=== PATIENT | female | born 1930 | race Caucasian/White ===

== ENCOUNTER 2018-02-27 09:50 | Inpatient (IN) | payer MEDICARE, OTHER ==
[~2018-02-27] VITALS: Ht 162.6 cm; Wt 95.4 kg
[2018-02-27 10:46] LABS: BASOPHILS % (AUTO) 0.6 % (0-1); EOSINOPHILS # (AUTO) 0.1 X10'3 (0-0.9); EOSINOPHILS % (AUTO) 2.4 % (0-6); HEMATOCRIT 36.7 % (35.0-45.0); HEMOGLOBIN 11.8 g/dl (12.0-16.0); LYMPHOCYTES # (AUTO) 0.7 X10'3 (1.1-4.8); LYMPHOCYTES % (AUTO) 12.7 % (21-51); MEAN CORPUSCULAR HGB CONC 32.2 % (33.0-36.5); MEAN CORPUSCULAR VOLUME 99.6 FL (78-98); MEAN PLATELET VOLUME 8.6 FL (7.4-10.4); MONOCYTES # (AUTO) 0.2 X10'3 (0-0.9); MONOCYTES % (AUTO) 4.6 % (2-12); NEUTROPHILS # (AUTO) 4.1 X10'3 (1.8-7.7); NEUTROPHILS % (AUTO) 79.7 % (42-75); PLATELET COUNT 166 X10'3 (140-440); RED BLOOD COUNT 3.68 X10'6 (4.20-5.60); RED CELL DISTRIBUTION WIDTH 16.2 % (11.5-14.5); WHITE BLOOD COUNT 5.2 X10'3 (4.5-11.0)
[2018-02-27 11:07] LABS: PARTIAL THROMBOPLASTIN TIME 26 SECONDS (22-32); PROTHROMBIN TIME 10.7 SECONDS (9.0-12.0)
[2018-02-27 12:50] LABS: ALANINE AMINOTRANSFERASE 29 U/L (12-78); ALBUMIN 3.6 G/DL (3.4-5.0); ALBUMIN/GLOBULIN RATIO 1.2 (1.1-1.5); ALKALINE PHOSPHATASE 105 IU/L (46-116); ANION GAP 8 (8-16); ASPARTATE AMINO TRANSFERASE 23 U/L (10-37); BILIRUBIN,TOTAL 0.5 MG/DL (0.1-1.0); BLOOD UREA NITROGEN 27 MG/DL (7-18); BUN/CREATININE RATIO 17.4 (6.6-38.0); CALCIUM 9.1 MG/DL (8.5-10.1); CHLORIDE 106 MMOL/L (99-107); CREATININE 1.55 MG/DL (0.40-0.90); GLUCOSE 105 MG/DL (70-104); POTASSIUM 4.6 MMOL/L (3.5-5.1); SODIUM 147 MMOL/L (135-145); TOTAL CARBON DIOXIDE 32.6 MMOL/L (24-32); TOTAL PROTEIN 6.7 G/DL (6.4-8.2); eGFR 32 ML/MIN
[2018-02-27 12:56] LABS: MAGNESIUM 2.6 MG/DL (1.5-2.4)
[2018-02-27] MEDS ORDERED: furosemide 10 MG/1 ML 10ml inj IV ONE (13:30)
[2018-02-27] MEDS ORDERED: dextrose ORAL solution 15 GM/59 ML bottle PO PRN ×2 (13:35)
[2018-02-27] MEDS ORDERED: glucagon, human recombinant 1mg kit SUBCUT PRN (13:35)
[2018-02-27] MEDS ORDERED: potassium Cl 40MEQ/NS 500ml 500 ML IV PRN ×2 (13:35)
[2018-02-27] MEDS ORDERED: HYDROcodone/acetaminophen 5mg/325mg tablet PO PRN (13:35)
[2018-02-27] MEDS ORDERED: MESSAGE TO PHARMACY PO ONE (13:35)
[2018-02-27] MEDS ORDERED: magnesium 1gm/100ml D5W IVPB 100 ML IV PRN (13:35)
[2018-02-27] MEDS ORDERED: dextrose 50%-water 50ml dispensing syringe IV PRN ×2 (13:35)
[2018-02-27] MEDS ORDERED: magnesium Cl slow-release 64mg tablet PO PRN (13:35)
[2018-02-27] MEDS ORDERED: mag hydrox/Alum hydrox/simeth 30ml oral suspension PO PRN (13:35)
[2018-02-27] MEDS ORDERED: morphine 2 MG/ML inj. syringe IV PRN (13:35)
[2018-02-27] MEDS ORDERED: magnesium 4gm in 100ml NS 100 ML IV PRN (13:35)
[2018-02-27] MEDS ORDERED: ondansetron/PF 4mg/2ml inj IV PRN (13:35)
[2018-02-27] MEDS ORDERED: potassium Cl 20 mEq SR tablet PO PRN ×2 (13:35)
[2018-02-27] MEDS ORDERED: ipratropium/albuterol 3ml nebule NEB PRN (13:35)
[2018-02-27] MEDS ORDERED: magnesium hydroxide 30ml (MOM) UD suspension PO PRN (13:35)
[2018-02-27] MEDS ORDERED: insulin Lispro (HumaLOG) vial - multi-dose SQ SCH (13:35)
[2018-02-27] MEDS ORDERED: acetaminophen 325mg tablet PO PRN (13:35)
[2018-02-27] MEDS ORDERED: FURO-150 PO (13:58)
[2018-02-27] MEDS ORDERED: OMEP40CA37 PO (13:58)
[2018-02-27] MEDS ORDERED: ROPI2TAB29 PO (13:58)
[2018-02-27] MEDS ORDERED: ALBU8.5H8 IH (13:58)
[2018-02-27] MEDS ORDERED: ASPI-1265 PO (13:58)
[2018-02-27] MEDS ORDERED: [UNRECOGNIZED DRUG - OTHER] (13:58)
[2018-02-27] MEDS ORDERED: CLOB15CR4 TOP (13:58)
[2018-02-27] MEDS ORDERED: AMIO200T40 PO (13:58)
[2018-02-27] MEDS ORDERED: ATOR10TA87 PO (13:58)
[2018-02-27] MEDS ORDERED: ALLO100T PO (13:58)
[2018-02-27] MEDS ORDERED: ASCO500C15 PO (13:58)
[2018-02-27] MEDS ORDERED: CALCIUM (13:59)
[2018-02-27] MEDS ORDERED: [UNRECOGNIZED DRUG - OTHER] (13:59)
[2018-02-27 14:27] LABS: HEMOGLOBIN A1C 5.6 % (4.5-6.2)
[2018-02-27] MEDS ORDERED: non-formulary drug (Albuterol Sulfate (Proair Hfa) 2 PUFFS) IH PRN (18:25)
[2018-02-27 18:30] VITALS: BP 100/44
[2018-02-27] MEDS ORDERED: albuterol 2.5 MG/3 ML nebule NEB PRN (18:50)
[2018-02-27] MEDS: clobetasol 0.05% cream 30gm TP SCH (20:00)
[2018-02-27] MEDS ORDERED: non-formulary drug (Clobetasol Propionate 1 APPLIC) TOP SCH (20:00)
[2018-02-27] MEDS: insulin glargine (Lantus) pen - multi-dose SQ SCH (21:00)
[2018-02-27] MEDS: ROPINIRole 1mg tablet PO SCH (21:48)
[2018-02-27 22:21] LABS: ALANINE AMINOTRANSFERASE 28 U/L (12-78); ALBUMIN 3.3 G/DL (3.4-5.0); ALBUMIN/GLOBULIN RATIO 1.1 (1.1-1.5); ALKALINE PHOSPHATASE 106 IU/L (46-116); ASPARTATE AMINO TRANSFERASE 19 U/L (10-37); BILIRUBIN,DIRECT 0.2 MG/DL (0-0.3); BILIRUBIN,TOTAL 0.5 MG/DL (0.1-1.0); TOTAL PROTEIN 6.3 G/DL (6.4-8.2)
[2018-02-28] VITALS: BP 110/60
[2018-02-28 05:11] LABS: BASOPHILS % (AUTO) 0.6 % (0-1); EOSINOPHILS # (AUTO) 0.2 X10'3 (0-0.9); EOSINOPHILS % (AUTO) 3.3 % (0-6); HEMATOCRIT 34.9 % (35.0-45.0); HEMOGLOBIN 11.1 g/dl (12.0-16.0); LYMPHOCYTES # (AUTO) 0.9 X10'3 (1.1-4.8); LYMPHOCYTES % (AUTO) 18.6 % (21-51); MEAN CORPUSCULAR HEMOGLOBIN 31.9 PG (27.0-31.0); MEAN CORPUSCULAR HGB CONC 31.9 % (33.0-36.5); MEAN CORPUSCULAR VOLUME 100.2 FL (78-98); MEAN PLATELET VOLUME 8.5 FL (7.4-10.4); MONOCYTES # (AUTO) 0.3 X10'3 (0-0.9); MONOCYTES % (AUTO) 6.9 % (2-12); NEUTROPHILS # (AUTO) 3.4 X10'3 (1.8-7.7); NEUTROPHILS % (AUTO) 70.6 % (42-75); PLATELET COUNT 162 X10'3 (140-440); RED BLOOD COUNT 3.48 X10'6 (4.20-5.60); RED CELL DISTRIBUTION WIDTH 15.4 % (11.5-14.5); WHITE BLOOD COUNT 4.8 X10'3 (4.5-11.0)
[2018-02-28 05:17] LABS: ALANINE AMINOTRANSFERASE 26 U/L (12-78); ALBUMIN 3.1 G/DL (3.4-5.0); ALBUMIN/GLOBULIN RATIO 1.1 (1.1-1.5); ALKALINE PHOSPHATASE 99 IU/L (46-116); ANION GAP 4 (8-16); ASPARTATE AMINO TRANSFERASE 19 U/L (10-37); BILIRUBIN,TOTAL 0.5 MG/DL (0.1-1.0); BLOOD UREA NITROGEN 31 MG/DL (7-18); BUN/CREATININE RATIO 18.8 (6.6-38.0); CALCIUM 8.7 MG/DL (8.5-10.1); CHLORIDE 104 MMOL/L (99-107); CREATININE 1.65 MG/DL (0.40-0.90); GLUCOSE 85 MG/DL (70-104); MAGNESIUM 2.3 MG/DL (1.5-2.4); POTASSIUM 4.1 MMOL/L (3.5-5.1); SODIUM 145 MMOL/L (135-145); TOTAL CARBON DIOXIDE 37.1 MMOL/L (24-32); eGFR 29 ML/MIN
[2018-02-28 07:00] VITALS: BP 113/54
[2018-02-28] MEDS ORDERED: furosemide 20MG tablet PO SCH (08:00)
[2018-02-28] MEDS: K and/or MAG REPLACEMENT MC SCH (08:00)
[2018-02-28] MEDS ORDERED: non-formulary drug (Omeprazole (Prilosec) 1 CAP) PO SCH (08:00)
[2018-02-28] MEDS ORDERED: non-formulary drug (Ascorbic Acid (Vitamin C) 1 CAP) PO SCH (08:00)
[2018-02-28] MEDS: aspirin 81mg tab.chew PO SCH (08:21)
[2018-02-28] MEDS: ascorbic acid 500mg tablet PO SCH (08:22)
[2018-02-28] MEDS: pantoprazole 40mg Tablet.DR PO SCH (08:22)
[2018-02-28] MEDS: allopurinol 100mg tablet PO SCH (08:22)
[2018-02-28] MEDS: atorvastatin 10mg tablet PO SCH (08:22)
[2018-02-28] MEDS: ROPINIRole 1mg tablet PO SCH ×3 (08:23→21:27)
[2018-02-28] MEDS: amiodarone 200mg tablet PO SCH (08:23)
[2018-02-28] MEDS: enoxaparin 40mg/0.4ml syringe SUBCUT SCH (08:25)
[2018-02-28] MEDS: clobetasol 0.05% cream 30gm TP SCH ×2 (08:26→21:27)
[2018-02-28] MEDS: furosemide 10 MG/1 ML 10ml inj IV SCH (09:28)
[2018-02-28 11:00] VITALS: BP 100/35
[2018-02-28] MEDS: insulin glargine (Lantus) pen - multi-dose SQ SCH (21:00)
[2018-03-01] VITALS: BP 98/48
[2018-03-01 04:11] LABS: BASOPHILS % (AUTO) 0.4 % (0-1); EOSINOPHILS # (AUTO) 0.2 X10'3 (0-0.9); EOSINOPHILS % (AUTO) 4.2 % (0-6); HEMATOCRIT 34.3 % (35.0-45.0); HEMOGLOBIN 11.1 g/dl (12.0-16.0); LYMPHOCYTES % (AUTO) 22.4 % (21-51); MEAN CORPUSCULAR HEMOGLOBIN 31.9 PG (27.0-31.0); MEAN CORPUSCULAR HGB CONC 32.2 % (33.0-36.5); MEAN CORPUSCULAR VOLUME 99.3 FL (78-98); MEAN PLATELET VOLUME 8.8 FL (7.4-10.4); MONOCYTES # (AUTO) 0.4 X10'3 (0-0.9); MONOCYTES % (AUTO) 8.6 % (2-12); NEUTROPHILS % (AUTO) 64.4 % (42-75); PLATELET COUNT 157 X10'3 (140-440); RED BLOOD COUNT 3.46 X10'6 (4.20-5.60); RED CELL DISTRIBUTION WIDTH 15.5 % (11.5-14.5); WHITE BLOOD COUNT 4.7 X10'3 (4.5-11.0)
[2018-03-01 04:25] LABS: ALANINE AMINOTRANSFERASE 25 U/L (12-78); ALBUMIN 3.1 G/DL (3.4-5.0); ALKALINE PHOSPHATASE 97 IU/L (46-116); ANION GAP 4 (8-16); ASPARTATE AMINO TRANSFERASE 17 U/L (10-37); BILIRUBIN,TOTAL 0.4 MG/DL (0.1-1.0); BLOOD UREA NITROGEN 40 MG/DL (7-18); BUN/CREATININE RATIO 21.6 (6.6-38.0); CALCIUM 8.6 MG/DL (8.5-10.1); CHLORIDE 104 MMOL/L (99-107); CREATININE 1.85 MG/DL (0.40-0.90); GLUCOSE 100 MG/DL (70-104); MAGNESIUM 2.5 MG/DL (1.5-2.4); SODIUM 145 MMOL/L (135-145); TOTAL CARBON DIOXIDE 36.9 MMOL/L (24-32); TOTAL PROTEIN 6.1 G/DL (6.4-8.2); eGFR 26 ML/MIN
[2018-03-01 06:00] VITALS: BP 130/51
[2018-03-01] MEDS: K and/or MAG REPLACEMENT MC SCH (07:19)
[2018-03-01] MEDS: allopurinol 100mg tablet PO SCH (09:04)
[2018-03-01] MEDS: atorvastatin 10mg tablet PO SCH (09:05)
[2018-03-01] MEDS: ascorbic acid 500mg tablet PO SCH (09:05)
[2018-03-01] MEDS: ROPINIRole 1mg tablet PO SCH ×3 (09:05→21:56)
[2018-03-01] MEDS: aspirin 81mg tab.chew PO SCH (09:05)
[2018-03-01] MEDS: amiodarone 200mg tablet PO SCH (09:06)
[2018-03-01] MEDS: furosemide 10 MG/1 ML 10ml inj IV SCH (09:07)
[2018-03-01] MEDS: clobetasol 0.05% cream 30gm TP SCH ×2 (09:09→21:57)
[2018-03-01] MEDS: enoxaparin 40mg/0.4ml syringe SUBCUT SCH (09:10)
[2018-03-01] MEDS: pantoprazole 40mg Tablet.DR PO SCH (09:25)
[2018-03-01 12:34] VITALS: BP 115/48
[2018-03-01 19:30] VITALS: BP 95/47
[2018-03-01] MEDS: insulin glargine (Lantus) pen - multi-dose SQ SCH (21:00)
[2018-03-02] VITALS: BP 110/42
[2018-03-02 05:14] LABS: BASOPHILS % (AUTO) 0.3 % (0-1); EOSINOPHILS # (AUTO) 0.2 X10'3 (0-0.9); EOSINOPHILS % (AUTO) 4.6 % (0-6); HEMATOCRIT 35.2 % (35.0-45.0); HEMOGLOBIN 11.4 g/dl (12.0-16.0); LYMPHOCYTES # (AUTO) 1.3 X10'3 (1.1-4.8); LYMPHOCYTES % (AUTO) 26.5 % (21-51); MEAN CORPUSCULAR HEMOGLOBIN 32.2 PG (27.0-31.0); MEAN CORPUSCULAR HGB CONC 32.3 % (33.0-36.5); MEAN CORPUSCULAR VOLUME 99.6 FL (78-98); MEAN PLATELET VOLUME 8.6 FL (7.4-10.4); MONOCYTES # (AUTO) 0.5 X10'3 (0-0.9); MONOCYTES % (AUTO) 9.5 % (2-12); NEUTROPHILS % (AUTO) 59.1 % (42-75); PLATELET COUNT 157 X10'3 (140-440); RED BLOOD COUNT 3.53 X10'6 (4.20-5.60); RED CELL DISTRIBUTION WIDTH 15.4 % (11.5-14.5)
[2018-03-02 05:27] LABS: ALANINE AMINOTRANSFERASE 25 U/L (12-78); ALBUMIN 3.1 G/DL (3.4-5.0); ALKALINE PHOSPHATASE 97 IU/L (46-116); ANION GAP 4 (8-16); ASPARTATE AMINO TRANSFERASE 17 U/L (10-37); BILIRUBIN,TOTAL 0.4 MG/DL (0.1-1.0); BLOOD UREA NITROGEN 42 MG/DL (7-18); BUN/CREATININE RATIO 22.7 (6.6-38.0); CALCIUM 8.5 MG/DL (8.5-10.1); CHLORIDE 102 MMOL/L (99-107); CREATININE 1.85 MG/DL (0.40-0.90); GLUCOSE 95 MG/DL (70-104); MAGNESIUM 2.5 MG/DL (1.5-2.4); POTASSIUM 4.1 MMOL/L (3.5-5.1); SODIUM 142 MMOL/L (135-145); TOTAL CARBON DIOXIDE 36.2 MMOL/L (24-32); TOTAL PROTEIN 6.2 G/DL (6.4-8.2); eGFR 26 ML/MIN
[2018-03-02] MEDS: K and/or MAG REPLACEMENT MC SCH (06:48)
[2018-03-02] MEDS: pantoprazole 40mg Tablet.DR PO SCH ×2 (06:52→09:27)
[2018-03-02 06:59] VITALS: BP 117/59
[2018-03-02] MEDS ORDERED: enoxaparin 30mg/0.3ml syringe SUBCUT SCH (08:00)
[2018-03-02] MEDS: ROPINIRole 1mg tablet PO SCH ×2 (09:26→13:37)
[2018-03-02] MEDS: atorvastatin 10mg tablet PO SCH (09:26)
[2018-03-02] MEDS: aspirin 81mg tab.chew PO SCH (09:27)
[2018-03-02] MEDS: ascorbic acid 500mg tablet PO SCH (09:27)
[2018-03-02] MEDS: allopurinol 100mg tablet PO SCH (09:28)
[2018-03-02] MEDS: amiodarone 200mg tablet PO SCH (09:28)
[2018-03-02] MEDS: furosemide 10 MG/1 ML 10ml inj IV SCH (09:29)
[2018-03-02] MEDS: clobetasol 0.05% cream 30gm TP SCH (09:41)
[2018-03-02] MEDS ORDERED: FURO-150 PO (11:13)
[2018-03-02 11:30] VITALS: BP 105/60
== END 2018-03-02 15:00 | disposition home or self-care (01) | DRG 306 ==
LOC: ER 09:51 → ED HOLD 13:33 → EDBEDREQ 17:07 → SUR 3N 19:12
PROVIDERS: ADMIT Internal Medicine; ATTEND Internal Medicine
DX: I35.0 Nonrheumatic aortic (valve) stenosis (principal); I50.23 Acute on chronic systolic (congestive) heart failure; J44.1 Chronic obstructive pulmonary disease with (acute) exacerbation; I11.0 Hypertensive heart disease with heart failure; E11.9 Type 2 diabetes mellitus without complications; E78.00 Pure hypercholesterolemia, unspecified; E78.5 Hyperlipidemia, unspecified; Z93.2 Ileostomy status; Z88.0 Allergy status to penicillin; Z79.899 Other long term (current) drug therapy; Z87.891 Personal history of nicotine dependence
CPT/HCPCS: 36415; 71045; 80053; 80076; 82948; 83036; 83735; 83880; 84439; 84443; 84484; 85025; 85610; 85730; 87070; 93005; 94760; 97116; 97161; 99285; J1650; J1815; J1940

== ENCOUNTER 2018-08-05 01:13 | Inpatient (IN) | payer MEDICARE | END 2018-08-08 18:30 | disposition short-term general hospital (02) | LOC: ER 01:13 → ICU 2S 04:27 | PROC: 5A1945Z Respiratory Ventilation, 24-96 Consecutive Hours (ICD-10-PCS; principal; ~2018-08-05) | PROC: 0BH17EZ Insertion of Endotracheal Airway into Trachea, Via Natural or Artificial Opening (ICD-10-PCS; ~2018-08-05) | DX: J96.90 Respiratory failure, unspecified, unspecified whether with hypoxia or hypercapnia (principal); I50.23 Acute on chronic systolic (congestive) heart failure; I13.0 Hypertensive heart and chronic kidney disease with heart failure and stage 1 through stage 4 chronic kidney disease, or unspecified chronic kidney disease; I11.0 Hypertensive heart disease with heart failure; E11.9 Type 2 diabetes mellitus without complications; N18.9 Chronic kidney disease, unspecified ==

== ENCOUNTER 2018-12-20 08:47 | Inpatient (IN) | payer MEDICARE ==
[~2018-12-20] VITALS: Ht 160 cm; Wt 90.0 kg
[~2018-12-20 08:47] MED LIST: ALBU2.5V7 NEB; ALBU8.5H8 IH; ALLO100T PO; AMIO200T61 PO; ASCO500C15 PO; ASPI-1265 PO; ATOR10TA87 PO; AZI25OT PO; CALC-1197 PO; CLOB15CR4 TOP; FURO40TA4 PO; HEPA500017 SQ; IPRA3AMP9 NEB; MULT-955 PO; OMEP20CA11 PO; ROPI2TAB29 PO
--- NOTE | 2018-12-20 10:55 | NUR ---
pt out to ct via dustin with aircraft mechanic structures
--- NOTE | 2018-12-20 11:10 | NUR ---
PT RETURNS FROM CT
[2018-12-20 12:18] LABS: BASOPHILS % (AUTO) 0.8 % (0-1); EOSINOPHILS # (AUTO) 0.2 X10'3 (0-0.9); EOSINOPHILS % (AUTO) 3.1 % (0-6); HEMATOCRIT 30.1 % (35.0-45.0); HEMOGLOBIN 9.8 g/dl (12.0-16.0); LYMPHOCYTES # (AUTO) 0.7 X10'3 (1.1-4.8); LYMPHOCYTES % (AUTO) 14.1 % (21-51); MEAN CORPUSCULAR HEMOGLOBIN 30.8 PG (27.0-31.0); MEAN CORPUSCULAR HGB CONC 32.7 g/dL (33.0-36.5); MEAN CORPUSCULAR VOLUME 94.2 FL (78-98); MEAN PLATELET VOLUME 8.2 FL (7.4-10.4); MONOCYTES # (AUTO) 0.3 X10'3 (0-0.9); MONOCYTES % (AUTO) 6.4 % (2-12); NEUTROPHILS # (AUTO) 3.9 X10'3 (1.8-7.7); NEUTROPHILS % (AUTO) 75.6 % (42-75); PLATELET COUNT 162 X10'3 (140-440); RED BLOOD COUNT 3.19 X10'6 (4.20-5.60); RED CELL DISTRIBUTION WIDTH 16.1 % (11.5-14.5); WHITE BLOOD COUNT 5.1 X10'3 (4.5-11.0)
[2018-12-20 12:30] LABS: ALANINE AMINOTRANSFERASE 25 U/L (12-78); ALBUMIN 3.3 G/DL (3.4-5.0); ALBUMIN/GLOBULIN RATIO 1.1 (1.1-1.5); ALKALINE PHOSPHATASE 105 IU/L (46-116); ANION GAP 10 (8-16); ASPARTATE AMINO TRANSFERASE 14 U/L (10-37); BILIRUBIN,TOTAL 0.4 MG/DL (0.1-1.0); BLOOD UREA NITROGEN 38 MG/DL (7-18); BUN/CREATININE RATIO 24.4 (6.6-38.0); CALCIUM 8.8 MG/DL (8.5-10.1); CHLORIDE 109 MMOL/L (99-107); CREATININE 1.56 MG/DL (0.40-0.90); GLUCOSE 100 MG/DL (70-104); POTASSIUM 4.8 MMOL/L (3.5-5.1); SODIUM 144 MMOL/L (135-145); TOTAL CARBON DIOXIDE 24.9 MMOL/L (24-32); TOTAL PROTEIN 6.3 G/DL (6.4-8.2); eGFR 31 ML/MIN
[2018-12-20 13:03] LABS: PARTIAL THROMBOPLASTIN TIME 40 SECONDS (22-32)
[2018-12-20 13:09] LABS: CLARITY,URINE CLEAR (Clear); COLOR,URINE YELLOW (Yellow); GLUCOSE, URINE NEGATIVE (Neg); KETONES,URINE NEGATIVE (Neg); LEUKOCYTE ESTERASE ,URINE NEGATIVE (Neg); NITRITES, URINE POSITIVE (Neg); OCCULT BLOOD,URINE SMALL (Neg); PH,URINE 7.5 (4.8-8.0); PROTEIN,URINE NEGATIVE (Neg); UROBILINOGEN,URINE 0.2 E.U/dL (0.2-1.0)
[2018-12-20 13:12] LABS: UA COLLECTION TYPE OTHER
[2018-12-20 13:15] LABS: BACTERIA,URINE FEW /HPF (Neg); MUCUS STRANDS FEW /LPF (Neg); RBC,URINE NONE SEEN /HPF (0-2); SQUAMOUS EPITHELIAL CELL,UR NONE SEEN /LPF (FEW); WBC,URINE 0-4 /HPF (0-4)
--- NOTE | 2018-12-20 13:29 | NUR ---
FAMILY CONTACT PHONE #: SARHA ONOFRE [phone]
[2018-12-20] MEDS ORDERED: mag hydrox/Alum hydrox/simeth 30ml oral suspension PO PRN (13:30)
[2018-12-20] MEDS ORDERED: acetaminophen 325mg tablet PO PRN (13:30)
[2018-12-20] MEDS ORDERED: morphine 2 MG/ML inj. syringe IV PRN (13:30)
[2018-12-20] MEDS ORDERED: ondansetron/PF 4mg/2ml inj IV PRN (13:30)
[2018-12-20] MEDS ORDERED: magnesium hydroxide 30ml (MOM) UD suspension PO PRN (13:30)
[2018-12-20] MEDS ORDERED: WARF-65 PO (13:45)
[2018-12-20] MEDS ORDERED: ROPI2TAB5 PO (13:45)
[2018-12-20] MEDS ORDERED: OMEP20CA11 PO (13:45)
[2018-12-20] MEDS ORDERED: ATOR40TA72 PO (13:45)
[2018-12-20] MEDS ORDERED: AMIO200T54 PO (14:21)
[2018-12-20] MEDS ORDERED: FURO-150 PO (14:21)
[2018-12-20] MEDS ORDERED: COU1T PO (14:23)
[2018-12-20] MEDS: normal saline 1000ml 1,000 ML IV SCH (14:41)
[2018-12-20 15:30] VITALS: BP 173/77
[2018-12-20 16:15] VITALS: BP 126/57
[2018-12-20 18:00] VITALS: BP 122/98
--- NOTE | 2018-12-20 18:15 | NUR ---
Problems reprioritized. Patient report given, questions answered & plan of care reviewed with MELINA Cid. pt in 4009A HR in the 40s per tele phone call. pt just woke up and was A/O. No SOB, resp distress, N/V, vertigo. Pt stated she was hungry and had appropriate exchange in coversation. Called tele back, pt back up into the 50s. This was pt baseline since admitted to floor at 1515
[2018-12-20] MEDS: ROPINIRole 1mg tablet PO SCH (20:08)
[2018-12-20] MEDS: warfarin 1mg tablet PO SCH (20:09)
[2018-12-20 22:00] VITALS: BP 106/44
[2018-12-21] MEDS: HYDROcodone/acetaminophen 10/325mg tab PO PRN (05:17)
--- NOTE | 2018-12-21 06:00 | NUR ---
Patient in room ORTHO 4009. I have received report from and had the opportunity to ask questions and assume patient care MELINA Girard.
[2018-12-21 06:13] LABS: ALBUMIN 3.1 G/DL (3.4-5.0); ANION GAP 8 (8-16); BLOOD UREA NITROGEN 36 MG/DL (7-18); BUN/CREATININE RATIO 24.3 (6.6-38.0); CALCIUM 8.6 MG/DL (8.5-10.1); CHLORIDE 109 MMOL/L (99-107); CREATININE 1.48 MG/DL (0.40-0.90); GLUCOSE 98 MG/DL (70-104); POTASSIUM 4.6 MMOL/L (3.5-5.1); SODIUM 143 MMOL/L (135-145); TOTAL CARBON DIOXIDE 26.4 MMOL/L (24-32); eGFR 33 ML/MIN
[2018-12-21 06:19] LABS: BASOPHILS # (AUTO) 0.1 X10'3 (0-0.2); BASOPHILS % (AUTO) 1.4 % (0-1); EOSINOPHILS # (AUTO) 0.3 X10'3 (0-0.9); HEMATOCRIT 31.5 % (35.0-45.0); HEMOGLOBIN 10.2 g/dl (12.0-16.0); LYMPHOCYTES # (AUTO) 1.1 X10'3 (1.1-4.8); LYMPHOCYTES % (AUTO) 20.8 % (21-51); MEAN CORPUSCULAR HEMOGLOBIN 30.8 PG (27.0-31.0); MEAN CORPUSCULAR HGB CONC 32.3 g/dL (33.0-36.5); MEAN CORPUSCULAR VOLUME 95.4 FL (78-98); MEAN PLATELET VOLUME 8.6 FL (7.4-10.4); MONOCYTES # (AUTO) 0.4 X10'3 (0-0.9); MONOCYTES % (AUTO) 8.2 % (2-12); NEUTROPHILS # (AUTO) 3.4 X10'3 (1.8-7.7); NEUTROPHILS % (AUTO) 64.6 % (42-75); PLATELET COUNT 173 X10'3 (140-440); RED CELL DISTRIBUTION WIDTH 15.6 % (11.5-14.5); WHITE BLOOD COUNT 5.3 X10'3 (4.5-11.0)
--- NOTE | 2018-12-21 06:35 | NUR ---
report given to starr Hunter.
[2018-12-21 07:40] VITALS: BP 140/62
[2018-12-21] MEDS ORDERED: non-formulary drug (Atorvastatin Calcium 1 TAB) PO SCH (08:00)
[2018-12-21] MEDS ORDERED: non-formulary drug (Omeprazole 1 CAP) PO SCH (08:00)
[2018-12-21] MEDS: pantoprazole 40mg Tablet.DR PO SCH (08:53)
[2018-12-21] MEDS: ROPINIRole 1mg tablet PO SCH ×3 (08:53→19:48)
[2018-12-21] MEDS: amiodarone 200mg tablet PO SCH (08:53)
[2018-12-21] MEDS: atorvastatin 20mg tablet PO SCH (08:53)
[2018-12-21] MEDS: furosemide 20MG tablet PO SCH (08:54)
[2018-12-21 10:00] VITALS: BP 122/56
[2018-12-21 18:00] VITALS: BP 124/48
--- NOTE | 2018-12-21 18:00 | NUR ---
Problems reprioritized. Patient report given, questions answered & plan of care reviewed with MELINA Girard.
--- NOTE | 2018-12-21 19:04 | NUR ---
REPORT REC'D FROM MELINA BULLOCK.
[2018-12-21] MEDS: levoFLOXACIN-Levaquin 500mg/D5 100 ML IV SCH (19:48)
[2018-12-21] MEDS: warfarin 1mg tablet PO SCH (19:49)
[2018-12-21 22:00] VITALS: BP 118/47
[2018-12-22] MEDS: HYDROcodone/acetaminophen 10/325mg tab PO PRN ×2 (01:18→05:28)
[2018-12-22 06:00] VITALS: BP 109/52
--- NOTE | 2018-12-22 06:23 | NUR ---
REPORT GIVEN TO MELINA BULLOCK.
[2018-12-22 06:24] LABS: BASOPHILS % (AUTO) 0.9 % (0-1); EOSINOPHILS # (AUTO) 0.3 X10'3 (0-0.9); EOSINOPHILS % (AUTO) 5.3 % (0-6); HEMATOCRIT 29.6 % (35.0-45.0); HEMOGLOBIN 9.7 g/dl (12.0-16.0); LYMPHOCYTES # (AUTO) 0.8 X10'3 (1.1-4.8); LYMPHOCYTES % (AUTO) 16.2 % (21-51); MEAN CORPUSCULAR HEMOGLOBIN 31.3 PG (27.0-31.0); MEAN CORPUSCULAR HGB CONC 32.8 g/dL (33.0-36.5); MEAN CORPUSCULAR VOLUME 95.5 FL (78-98); MEAN PLATELET VOLUME 8.3 FL (7.4-10.4); MONOCYTES # (AUTO) 0.4 X10'3 (0-0.9); MONOCYTES % (AUTO) 7.7 % (2-12); NEUTROPHILS # (AUTO) 3.4 X10'3 (1.8-7.7); NEUTROPHILS % (AUTO) 69.9 % (42-75); PLATELET COUNT 155 X10'3 (140-440); RED CELL DISTRIBUTION WIDTH 15.9 % (11.5-14.5); WHITE BLOOD COUNT 4.9 X10'3 (4.5-11.0)
[2018-12-22 06:29] LABS: ALBUMIN 2.8 G/DL (3.4-5.0); ANION GAP 4 (8-16); BLOOD UREA NITROGEN 40 MG/DL (7-18); BUN/CREATININE RATIO 25.5 (6.6-38.0); CALCIUM 8.3 MG/DL (8.5-10.1); CHLORIDE 107 MMOL/L (99-107); CREATININE 1.57 MG/DL (0.40-0.90); GLUCOSE 94 MG/DL (70-104); POTASSIUM 4.6 MMOL/L (3.5-5.1); SODIUM 141 MMOL/L (135-145); TOTAL CARBON DIOXIDE 29.7 MMOL/L (24-32); eGFR 31 ML/MIN
[2018-12-22] MEDS: atorvastatin 20mg tablet PO SCH (08:22)
[2018-12-22] MEDS: levoFLOXACIN-Levaquin 500mg/D5 100 ML IV SCH (08:22)
[2018-12-22] MEDS: ROPINIRole 1mg tablet PO SCH ×3 (08:22→20:12)
[2018-12-22] MEDS: pantoprazole 40mg Tablet.DR PO SCH (08:22)
[2018-12-22] MEDS: furosemide 20MG tablet PO SCH (08:22)
[2018-12-22] MEDS: amiodarone 200mg tablet PO SCH (08:22)
[2018-12-22 10:00] VITALS: BP 113/41
[2018-12-22] MEDS: warfarin 1mg tablet PO SCH (20:14)
[2018-12-22 22:00] VITALS: BP 113/40
[2018-12-23] MEDS: normal saline 1000ml 1,000 ML IV SCH (04:58)
[2018-12-23 06:35] LABS: ALBUMIN 2.9 G/DL (3.4-5.0); ANION GAP 7 (8-16); BLOOD UREA NITROGEN 37 MG/DL (7-18); BUN/CREATININE RATIO 25.7 (6.6-38.0); CALCIUM 8.6 MG/DL (8.5-10.1); CHLORIDE 106 MMOL/L (99-107); CREATININE 1.44 MG/DL (0.40-0.90); GLUCOSE 88 MG/DL (70-104); POTASSIUM 4.5 MMOL/L (3.5-5.1); SODIUM 142 MMOL/L (135-145); eGFR 34 ML/MIN
[2018-12-23 06:38] LABS: BASOPHILS % (AUTO) 0.7 % (0-1); EOSINOPHILS # (AUTO) 0.2 X10'3 (0-0.9); EOSINOPHILS % (AUTO) 5.2 % (0-6); HEMATOCRIT 31.2 % (35.0-45.0); HEMOGLOBIN 10.3 g/dl (12.0-16.0); LYMPHOCYTES # (AUTO) 0.9 X10'3 (1.1-4.8); MEAN CORPUSCULAR HGB CONC 32.8 g/dL (33.0-36.5); MEAN CORPUSCULAR VOLUME 94.5 FL (78-98); MEAN PLATELET VOLUME 8.2 FL (7.4-10.4); MONOCYTES # (AUTO) 0.4 X10'3 (0-0.9); MONOCYTES % (AUTO) 9.1 % (2-12); PLATELET COUNT 159 X10'3 (140-440); RED CELL DISTRIBUTION WIDTH 15.7 % (11.5-14.5); WHITE BLOOD COUNT 4.6 X10'3 (4.5-11.0)
--- NOTE | 2018-12-23 06:41 | NUR ---
ns reassessment not done when coming on shift
[2018-12-23 06:43] VITALS: BP 139/55
--- NOTE | 2018-12-23 06:43 | NUR ---
Patient in room ORTHO 4009. I have received report from Era SUMMERS and had the opportunity to ask questions and assume patient care.
[2018-12-23] MEDS: levoFLOXACIN-Levaquin 500mg/D5 100 ML IV SCH ×2 (07:33→08:00)
[2018-12-23] MEDS: amiodarone 200mg tablet PO SCH (07:33)
[2018-12-23] MEDS: atorvastatin 20mg tablet PO SCH (07:33)
[2018-12-23] MEDS: pantoprazole 40mg Tablet.DR PO SCH (07:34)
[2018-12-23] MEDS: furosemide 20MG tablet PO SCH (07:34)
[2018-12-23] MEDS: ROPINIRole 1mg tablet PO SCH ×3 (07:34→20:00)
[2018-12-23] MEDS ORDERED: levoFLOXACIN 500mg tablet PO ONE (09:00)
[2018-12-23 10:33] VITALS: BP 142/40
--- NOTE | 2018-12-23 16:27 | NUR ---
Pt was told she was not leaving today because of insurance approval. Pt said to call Rossy to let her know. Rossy was notified.
[2018-12-23 18:00] VITALS: BP 125/38
--- NOTE | 2018-12-23 18:00 | NUR ---
I AGREE WIH MY PRECEPTEE'S BILL RN CHARTING.
--- NOTE | 2018-12-23 18:17 | NUR ---
Problems reprioritized. Patient report given, questions answered & plan of care reviewed with Mary Grace SUMMERS.
[2018-12-23] MEDS: warfarin 1mg tablet PO SCH (19:59)
[2018-12-23 22:00] VITALS: BP 122/40
[2018-12-24 05:50] LABS: ANION GAP 6 (8-16); BLOOD UREA NITROGEN 39 MG/DL (7-18); BUN/CREATININE RATIO 24.1 (6.6-38.0); CALCIUM 8.8 MG/DL (8.5-10.1); CHLORIDE 105 MMOL/L (99-107); CREATININE 1.62 MG/DL (0.40-0.90); GLUCOSE 92 MG/DL (70-104); POTASSIUM 4.3 MMOL/L (3.5-5.1); SODIUM 142 MMOL/L (135-145); TOTAL CARBON DIOXIDE 31.4 MMOL/L (24-32); eGFR 30 ML/MIN
[2018-12-24 05:55] LABS: BASOPHILS % (AUTO) 0.6 % (0-1); EOSINOPHILS # (AUTO) 0.2 X10'3 (0-0.9); EOSINOPHILS % (AUTO) 4.6 % (0-6); HEMOGLOBIN 10.8 g/dl (12.0-16.0); LYMPHOCYTES % (AUTO) 22.5 % (21-51); MEAN CORPUSCULAR HEMOGLOBIN 30.7 PG (27.0-31.0); MEAN CORPUSCULAR HGB CONC 32.6 g/dL (33.0-36.5); MEAN CORPUSCULAR VOLUME 94.1 FL (78-98); MEAN PLATELET VOLUME 8.3 FL (7.4-10.4); MONOCYTES # (AUTO) 0.4 X10'3 (0-0.9); MONOCYTES % (AUTO) 9.6 % (2-12); NEUTROPHILS # (AUTO) 2.9 X10'3 (1.8-7.7); NEUTROPHILS % (AUTO) 62.7 % (42-75); PLATELET COUNT 163 X10'3 (140-440); RED BLOOD COUNT 3.51 X10'6 (4.20-5.60); RED CELL DISTRIBUTION WIDTH 15.6 % (11.5-14.5); WHITE BLOOD COUNT 4.6 X10'3 (4.5-11.0)
--- NOTE | 2018-12-24 06:08 | NUR ---
Problems reprioritized. Patient report given, questions answered & plan of care reviewed with MELINA Huerta and MELINA Knox.
[2018-12-24 06:35] VITALS: BP 133/48
--- NOTE | 2018-12-24 06:36 | NUR ---
Patient in room ORTHO 4009. I have received report from Mary Grace SUMMERS and had the opportunity to ask questions and assume patient care.
[2018-12-24] MEDS: ROPINIRole 1mg tablet PO SCH ×2 (07:55→13:02)
[2018-12-24] MEDS: furosemide 20MG tablet PO SCH (07:56)
[2018-12-24] MEDS: pantoprazole 40mg Tablet.DR PO SCH (07:56)
[2018-12-24] MEDS: atorvastatin 20mg tablet PO SCH (07:56)
[2018-12-24] MEDS: amiodarone 200mg tablet PO SCH (07:56)
[2018-12-24 10:00] VITALS: BP 86/52
[2018-12-24] MEDS: HYDROcodone/acetaminophen 10/325mg tab PO PRN (10:36)
[2018-12-24] MEDS ORDERED: lactose-reduced food (Ensure High Protein) 237ml bottle PO SCH (13:00)
--- NOTE | 2018-12-24 15:01 | NUR ---
Initial: Pt admit w/ pelic fx s/p fall. RD provided written/verbal high protein ed w/ RD Contact information provided. Pt PO 75-100% meals agrees to vanilla ensure high protein TIDWM as well as cottage cheese w/ fruit for lunch. Dietary and MD notified; pending MD verification prior to sending on trays which pt is aware of. LBM 12/24. Will continue to monitor. Rec: 1. continue regular diet 2. vanilla ensure high protein TIDWM 3. routine bowel care 4. wt per rx Addendum: 12/24/18 at [address] Amended: Links added.
--- NOTE | 2018-12-24 16:00 | NUR ---
I AGREE WITH ,Y PRECEPTEE BILL SUMMERS CHARTING.
== END 2018-12-24 15:50 | DRG 536 ==
LOC: ER 08:47 → ORTHO 4S 15:00 → CMPBEDREQ 12-21 19:44
PROVIDERS: ADMIT Family Medicine; ATTEND Family Medicine
DX: S32.511A Fracture of superior rim of right pubis, initial encounter for closed fracture (principal); N39.0 Urinary tract infection, site not specified; J44.9 Chronic obstructive pulmonary disease, unspecified; E11.9 Type 2 diabetes mellitus without complications; E78.00 Pure hypercholesterolemia, unspecified; E78.5 Hyperlipidemia, unspecified; W18.39XA Other fall on same level, initial encounter; Y83.1 Surgical operation with implant of artificial internal device as the cause of abnormal reaction of the patient, or of later complication, without mention of misadventure at the time of the procedure; I11.0 Hypertensive heart disease with heart failure; I50.9 Heart failure, unspecified; Z79.01 Long term (current) use of anticoagulants; Z95.2 Presence of prosthetic heart valve; Z88.0 Allergy status to penicillin; Y93.89 Activity, other specified; Y92.89 Other specified places as the place of occurrence of the external cause; Y99.8 Other external cause status
CPT/HCPCS: 36415; 72131; 72192; 80048; 80053; 81001; 85025; 85610; 85730; 87077; 87081; 87088; 87186; 96360; 97110; 97116; 97161; 97530; 99285; G0378; J1956; J7030

== ENCOUNTER 2019-01-16 00:40 | Inpatient (IN) | payer MEDICARE ==
[~2019-01-16] VITALS: Ht 167.6 cm; Wt 86.9 kg
[2019-01-16] VITALS (15 sets, daily range): BP systolic 99–139; BP diastolic 40–59
[~2019-01-16 00:40] MED LIST changes: -ALBU2.5V7 NEB; -ALBU8.5H8 IH; -ALLO100T PO; +AMIO200T54 PO; -AMIO200T61 PO; -ASCO500C15 PO; -ASPI-1265 PO; -ATOR10TA87 PO; +ATOR40TA72 PO; -AZI25OT PO; -CALC-1197 PO; -CLOB15CR4 TOP; +COU1T PO; +FURO-150 PO; -FURO40TA4 PO; -HEPA500017 SQ; -IPRA3AMP9 NEB; -MULT-955 PO; -ROPI2TAB29 PO; +ROPI2TAB5 PO
[2019-01-16 01:06] LABS: ABG BASE EXCESS 5.4 mmol/L (-2.0-3.0); ABG HCO3 32.5 mmol/L (22.0-26.0); ABG OXYGEN SATURATION 95.4 % (95-98); ABG PCO2 (T) 67.5 mmHg (35.0-45.0); ABG PH (T) 7.311 (7.350-7.450); ABG PO2 (T) 90.4 mmHg (83-108); FCOHb 0.3 % (0.5-1.5); FLOW 15 L/min; FMetHb 0.3 % (0.3-1.12); FO2Hb 94.8 % (94-100); PATIENT TEMPERATURE 39.3
[2019-01-16] MEDS ORDERED: enalaprilat dihydrate 2.5mg/2ml vial IV ONE (01:15)
[2019-01-16] MEDS ORDERED: nitroGLYCERIN-Tridil 50MG/D5W 250 ML IV ONE (01:15)
--- NOTE | 2019-01-16 01:32 | NUR ---
systolic blood pressure manually 70/30. Attempted on both arms. Pt awake and responsive. MD aware.
[2019-01-16] MEDS ORDERED: NORepinephrine inj. 16 MG in normal saline 500ml IV soln 484 ML IV SCH (01:40)
[2019-01-16 01:49] LABS: BASOPHILS # (AUTO) 0.2 X10'3 (0-0.2); BASOPHILS % (AUTO) 0.8 % (0-1); EOSINOPHILS % (AUTO) 0.1 % (0-6); HEMATOCRIT 28.8 % (35.0-45.0); HEMOGLOBIN 9.3 g/dl (12.0-16.0); LYMPHOCYTES # (AUTO) 0.2 X10'3 (1.1-4.8); MEAN CORPUSCULAR HEMOGLOBIN 30.5 PG (27.0-31.0); MEAN CORPUSCULAR HGB CONC 32.2 g/dL (33.0-36.5); MEAN CORPUSCULAR VOLUME 94.8 FL (78-98); MEAN PLATELET VOLUME 7.6 FL (7.4-10.4); MONOCYTES # (AUTO) 0.7 X10'3 (0-0.9); MONOCYTES % (AUTO) 3.3 % (2-12); NEUTROPHILS # (AUTO) 21.2 X10'3 (1.8-7.7); NEUTROPHILS % (AUTO) 94.8 % (42-75); PLATELET COUNT 232 X10'3 (140-440); RED BLOOD COUNT 3.04 X10'6 (4.20-5.60); RED CELL DISTRIBUTION WIDTH 16.4 % (11.5-14.5); WHITE BLOOD COUNT 22.3 X10'3 (4.5-11.0)
[2019-01-16] MEDS: NORepinephrine 8mg/ 250ml NS 250 ML IV SCH (01:50)
[2019-01-16 02:11] LABS: ALANINE AMINOTRANSFERASE 109 U/L (12-78); ALBUMIN 2.9 G/DL (3.4-5.0); ALKALINE PHOSPHATASE 132 IU/L (46-116); ANION GAP 5 (8-16); ASPARTATE AMINO TRANSFERASE 41 U/L (10-37); BILIRUBIN,TOTAL 0.7 MG/DL (0.1-1.0); BLOOD UREA NITROGEN 25 MG/DL (7-18); CALCIUM 8.1 MG/DL (8.5-10.1); CHLORIDE 106 MMOL/L (99-107); CREATININE 1.47 MG/DL (0.40-0.90); GLUCOSE 101 MG/DL (70-104); POTASSIUM 4.9 MMOL/L (3.5-5.1); SODIUM 143 MMOL/L (135-145); TOTAL CARBON DIOXIDE 31.7 MMOL/L (24-32); TOTAL PROTEIN 5.9 G/DL (6.4-8.2); eGFR 34 ML/MIN
[2019-01-16] MEDS ORDERED: vancomycin/NS 1 GM ADD-VANTAGE 250 ML IV ONE (02:45)
[2019-01-16] MEDS ORDERED: CefTRIAXone 2gm/D5W 50ml 50 ML IV ONE (02:45)
[2019-01-16] MEDS ORDERED: levoFLOXACIN-Levaquin 750MG/D5 150 ML IV ONE (02:45)
[2019-01-16 02:47] LABS: D-DIMER 0.81 MG/L FEU (0-0.50); PARTIAL THROMBOPLASTIN TIME 50 SECONDS (22-32)
[2019-01-16 03:05] LABS: TOTAL CELLS COUNTED 100
[2019-01-16 03:06] LABS: ANISOCYTOSIS 1+; PLATELET ESTIMATE NORMAL
[2019-01-16 03:07] LABS: ELLIPTOCYTES FEW; HYPOCHROMASIA 1+; POLYCHROMASIA FEW; STOMATOCYTES 1+
[2019-01-16 03:16] LABS: RED BLOOD COUNT 2.99 X10'6 (4.20-5.60); RETICULOCYTE % (AUTO) 1.9 % (0.5-1.5)
[2019-01-16] MEDS ORDERED: ALB0.5UD IH (03:44)
[2019-01-16 05:50] LABS: CLARITY,URINE CLOUDY (Clear); COLOR,URINE YELLOW (Yellow); GLUCOSE, URINE NEGATIVE (Neg); KETONES,URINE NEGATIVE (Neg); LEUKOCYTE ESTERASE ,URINE LARGE (Neg); NITRITES, URINE POSITIVE (Neg); OCCULT BLOOD,URINE MODERATE (Neg); PROTEIN,URINE 100 mg/dl (Neg); UROBILINOGEN,URINE 0.2 E.U/dL (0.2-1.0)
[2019-01-16] MEDS ORDERED: NORepinephrine 8mg/ 250ml NS 250 ML IV PRN (05:59)
[2019-01-16 06:00] LABS: UA COLLECTION TYPE OTHER
[2019-01-16] MEDS ORDERED: acetaminophen 650mg rectal suppository RC PRN (06:00)
[2019-01-16] MEDS ORDERED: ondansetron/PF 4mg/2ml inj IV PRN (06:00)
[2019-01-16] MEDS ORDERED: magnesium 2GM in 50ml NS 50 ML IV PRN (06:00)
[2019-01-16] MEDS ORDERED: magnesium 4gm in 100ml NS 100 ML IV PRN (06:00)
[2019-01-16] MEDS ORDERED: acetaminophen 325mg tablet PO PRN ×2 (06:00)
[2019-01-16 06:01] LABS: BACTERIA,URINE 2+ /HPF (Neg); SQUAMOUS EPITHELIAL CELL,UR FEW /LPF (FEW); WBC,URINE 30-50 /HPF (0-4)
[2019-01-16] MEDS ORDERED: phytonadione inj. 2 MG in normal saline 100ml IV soln 99.8 ML IV ONE (06:20)
--- NOTE | 2019-01-16 06:37 | NUR ---
BP 150/54, ADJUST LEVOPHED DOWN TO 6 MC/MIN. FAMILIY AT BEDSIDE.
[2019-01-16] MEDS ORDERED: albuterol 2.5 MG/3 ML nebule NEB PRN (06:40)
--- NOTE | 2019-01-16 07:22 | NUR ---
ROLLWAY WORKER IN ROOM TO DRAW LABS.
[2019-01-16] MEDS: cefepime 1GM in D5W 50mL 50 ML IV SCH ×2 (07:50→15:10)
[2019-01-16] MEDS: ROPINIRole 1mg tablet PO SCH ×3 (08:00→21:21)
[2019-01-16] MEDS ORDERED: furosemide 40mg/4ml inj IV SCH (08:00)
[2019-01-16] MEDS ORDERED: aztreonam inj. 2,000 MG in dextrose 5%-water 100 ML IV SCH (08:00)
[2019-01-16 09:02] LABS: ALANINE AMINOTRANSFERASE 102 U/L (12-78); ALBUMIN 2.7 G/DL (3.4-5.0); ALBUMIN/GLOBULIN RATIO 0.9 (1.1-1.5); ALKALINE PHOSPHATASE 122 IU/L (46-116); ASPARTATE AMINO TRANSFERASE 43 U/L (10-37); BILIRUBIN,DIRECT 0.2 MG/DL (0-0.3); BILIRUBIN,TOTAL 0.6 MG/DL (0.1-1.0); MAGNESIUM 1.8 MG/DL (1.5-2.4); PHOSPHORUS 3.4 MG/DL (2.3-4.5); TOTAL PROTEIN 5.7 G/DL (6.4-8.2)
[2019-01-16] MEDS: atorvastatin 20mg tablet PO SCH (09:32)
[2019-01-16] MEDS: docusate sod 100mg capsule PO SCH ×2 (09:32→21:22)
[2019-01-16] MEDS: amiodarone 200mg tablet PO SCH (09:32)
[2019-01-16] MEDS: pantoprazole 40 MG vial IV SCH (09:32)
[2019-01-16 14:30] LABS: ABG HCO3 30.2 mmol/L (22.0-26.0); ABG OXYGEN SATURATION 97.6 % (95-98); ABG PCO2 (T) 47.7 mmHg (35.0-45.0); ABG PH (T) 7.419 (7.350-7.450); ABG PO2 (T) 105.3 mmHg (83-108); ALLEN'S TEST Positive; FCOHb 0.3 % (0.5-1.5); FMetHb 0.3 % (0.3-1.12); MINUTE VOLUME 16 L/min; RESPIRATORY RATE 16 b/min; RESPIRATORY RATE (OBSERVED) 18 b/min; TIDAL VOLUME 780 mL; TOTAL HEMOGLOBIN 10.1 G/dl (12.0-16.0)
--- NOTE | 2019-01-16 18:30 | NUR ---
Patient in room CICU 2006. I have received report from Bettie SUMMERS and had the opportunity to ask questions and assume patient care.
--- NOTE | 2019-01-16 20:30 | NUR ---
Current INR result called to Osiris Begum. No new orders at this time. Pt tolerating BiPap well. Will continue to monitor.
[2019-01-16 20:58] LABS: PARTIAL THROMBOPLASTIN TIME 40 SECONDS (22-32)
[2019-01-16] MEDS: lactobacillus rhamnosus 10,000 MMU CELLS/CAPSULE PO SCH (21:21)
[2019-01-17] VITALS (25 sets, daily range): BP systolic 94–152; BP diastolic 32–74
[2019-01-17] MEDS: cefepime 1GM in D5W 50mL 50 ML IV SCH ×2 (00:18→07:23)
--- NOTE | 2019-01-17 03:37 | NUR ---
Titrating Levophed to keep MAP greater than 65. Pt tolerating being off BiPap at this time.
[2019-01-17 03:43] LABS: BASOPHILS % (AUTO) 0.3 % (0-1); EOSINOPHILS # (AUTO) 0.3 X10'3 (0-0.9); EOSINOPHILS % (AUTO) 1.8 % (0-6); HEMATOCRIT 27.1 % (35.0-45.0); HEMOGLOBIN 8.7 g/dl (12.0-16.0); LYMPHOCYTES # (AUTO) 0.4 X10'3 (1.1-4.8); MEAN CORPUSCULAR HEMOGLOBIN 30.2 PG (27.0-31.0); MEAN CORPUSCULAR VOLUME 94.3 FL (78-98); MONOCYTES # (AUTO) 0.5 X10'3 (0-0.9); MONOCYTES % (AUTO) 3.6 % (2-12); NEUTROPHILS # (AUTO) 13.5 X10'3 (1.8-7.7); NEUTROPHILS % (AUTO) 91.3 % (42-75); PLATELET COUNT 193 X10'3 (140-440); RED BLOOD COUNT 2.87 X10'6 (4.20-5.60); RED CELL DISTRIBUTION WIDTH 16.9 % (11.5-14.5); WHITE BLOOD COUNT 14.8 X10'3 (4.5-11.0)
[2019-01-17] MEDS: vancomycin/NS 1 GM ADD-VANTAGE 250 ML IV SCH (04:12)
[2019-01-17 05:03] LABS: PARTIAL THROMBOPLASTIN TIME 39 SECONDS (22-32)
[2019-01-17 05:06] LABS: ALANINE AMINOTRANSFERASE 79 U/L (12-78); ALBUMIN 2.4 G/DL (3.4-5.0); ALBUMIN/GLOBULIN RATIO 0.8 (1.1-1.5); ALKALINE PHOSPHATASE 101 IU/L (46-116); ANION GAP 6 (8-16); ASPARTATE AMINO TRANSFERASE 38 U/L (10-37); BILIRUBIN,TOTAL 0.8 MG/DL (0.1-1.0); BLOOD UREA NITROGEN 26 MG/DL (7-18); BUN/CREATININE RATIO 18.4 (6.6-38.0); CALCIUM 8.2 MG/DL (8.5-10.1); CHLORIDE 108 MMOL/L (99-107); CREATININE 1.41 MG/DL (0.40-0.90); GLUCOSE 87 MG/DL (70-104); PHOSPHORUS 2.7 MG/DL (2.3-4.5); POTASSIUM 4.2 MMOL/L (3.5-5.1); SODIUM 145 MMOL/L (135-145); TOTAL CARBON DIOXIDE 30.9 MMOL/L (24-32); TOTAL PROTEIN 5.3 G/DL (6.4-8.2); eGFR 35 ML/MIN
--- NOTE | 2019-01-17 06:20 | NUR ---
Problems reprioritized. Patient report given, questions answered & plan of care reviewed with Erendira SUMMERS.
--- NOTE | 2019-01-17 06:27 | NUR ---
Patient in room [facility] 2006. I have received report from Romy SUMMERS and had the opportunity to ask questions and assume patient care. Addendum: 01/17/19 at 0628 by Erendira Noland RN Amended: Links added.
[2019-01-17] MEDS: lactobacillus rhamnosus 10,000 MMU CELLS/CAPSULE PO SCH ×2 (07:23→20:46)
[2019-01-17] MEDS: docusate sod 100mg capsule PO SCH ×2 (07:23→20:47)
[2019-01-17] MEDS: atorvastatin 20mg tablet PO SCH (07:24)
[2019-01-17] MEDS: amiodarone 200mg tablet PO SCH (07:24)
[2019-01-17] MEDS: ROPINIRole 1mg tablet PO SCH ×3 (07:24→20:46)
[2019-01-17] MEDS: pantoprazole 40 MG vial IV SCH (07:30)
[2019-01-17] MEDS: cefepime 1GM/NS ADD-VANTAGE 100 ML IV SCH (15:36)
--- NOTE | 2019-01-17 17:31 | NUR ---
Have tried to wean Levophed completely off pt. today without success. GTT rate remains at 2mcg.
--- NOTE | 2019-01-17 18:24 | NUR ---
Problems reprioritized. Patient report given, questions answered & plan of care reviewed with Romy SUMMERS. Addendum: 01/17/19 at 1824 by Erendira Noland RN Amended: Links added.
--- NOTE | 2019-01-17 18:30 | NUR ---
Patient in room CICU 2006. I have received report from Erendira SUMMERS and had the opportunity to ask questions and assume patient care.
[2019-01-17] MEDS ORDERED: warfarin 1mg tablet PO ONE (21:00)
--- NOTE | 2019-01-17 22:28 | NUR ---
Pt complaining of itching, skin reddened. Ariane notified, orders received.
[2019-01-17] MEDS ORDERED: diphenhydrAMINE 25mg capsule PO PRN (22:30)
[2019-01-18] VITALS (14 sets, daily range): BP systolic 102–159; BP diastolic 31–76
[2019-01-18] MEDS: cefepime 1GM/NS ADD-VANTAGE 100 ML IV SCH ×4 (00:22→23:55)
--- NOTE | 2019-01-18 00:46 | NUR ---
Pt appears to be sleeping, awakens easily to voice. Levophed off, pt able to maintain MAP greater than 60.
[2019-01-18] MEDS: NORepinephrine 8mg/ 250ml NS 250 ML IV SCH (01:44)
[2019-01-18 02:39] LABS: PARTIAL THROMBOPLASTIN TIME 39 SECONDS (22-32)
[2019-01-18 02:45] LABS: ALANINE AMINOTRANSFERASE 64 U/L (12-78); ALBUMIN 2.2 G/DL (3.4-5.0); ALBUMIN/GLOBULIN RATIO 0.8 (1.1-1.5); ALKALINE PHOSPHATASE 89 IU/L (46-116); ANION GAP 2 (8-16); ASPARTATE AMINO TRANSFERASE 29 U/L (10-37); BILIRUBIN,TOTAL 0.6 MG/DL (0.1-1.0); BLOOD UREA NITROGEN 20 MG/DL (7-18); CALCIUM 7.9 MG/DL (8.5-10.1); CHLORIDE 109 MMOL/L (99-107); CREATININE 1.25 MG/DL (0.40-0.90); GLUCOSE 93 MG/DL (70-104); MAGNESIUM 1.9 MG/DL (1.5-2.4); PHOSPHORUS 2.6 MG/DL (2.3-4.5); POTASSIUM 3.9 MMOL/L (3.5-5.1); SODIUM 143 MMOL/L (135-145); TOTAL CARBON DIOXIDE 31.8 MMOL/L (24-32); eGFR 41 ML/MIN
[2019-01-18 02:46] LABS: BASOPHILS % (AUTO) 0.2 % (0-1); EOSINOPHILS # (AUTO) 0.2 X10'3 (0-0.9); EOSINOPHILS % (AUTO) 2.8 % (0-6); HEMATOCRIT 24.4 % (35.0-45.0); HEMOGLOBIN 7.9 g/dl (12.0-16.0); LYMPHOCYTES # (AUTO) 0.4 X10'3 (1.1-4.8); MEAN CORPUSCULAR HEMOGLOBIN 30.6 PG (27.0-31.0); MEAN CORPUSCULAR HGB CONC 32.3 g/dL (33.0-36.5); MEAN CORPUSCULAR VOLUME 94.8 FL (78-98); MEAN PLATELET VOLUME 8.5 FL (7.4-10.4); MONOCYTES # (AUTO) 0.3 X10'3 (0-0.9); MONOCYTES % (AUTO) 4.4 % (2-12); NEUTROPHILS # (AUTO) 6.4 X10'3 (1.8-7.7); NEUTROPHILS % (AUTO) 87.6 % (42-75); PLATELET COUNT 138 X10'3 (140-440); RED BLOOD COUNT 2.58 X10'6 (4.20-5.60); WHITE BLOOD COUNT 7.4 X10'3 (4.5-11.0)
[2019-01-18] MEDS: vancomycin/NS 1 GM ADD-VANTAGE 250 ML IV SCH (04:24)
--- NOTE | 2019-01-18 04:36 | NUR ---
Pt awakens easily, tolerating being off biPap. Levophed remains off. Pt states itching decreased p/Benadryl. Will continue to monitor.
[2019-01-18] MEDS ORDERED: lactulose 20gm/30ml cup PO PRN (06:00)
--- NOTE | 2019-01-18 06:18 | NUR ---
Problems reprioritized. Patient report given, questions answered & plan of care reviewed with Erendira SUMMERS.
--- NOTE | 2019-01-18 06:19 | NUR ---
Patient in room CICU 2006. I have received report from Romy SUMMERS and had the opportunity to ask questions and assume patient care.
[2019-01-18] MEDS: lactobacillus rhamnosus 10,000 MMU CELLS/CAPSULE PO SCH ×2 (07:14→19:48)
[2019-01-18] MEDS: docusate sod 100mg capsule PO SCH ×2 (07:14→19:48)
[2019-01-18] MEDS: pantoprazole 40mg Tablet.DR PO SCH (07:15)
[2019-01-18] MEDS: amiodarone 200mg tablet PO SCH (07:15)
[2019-01-18] MEDS: atorvastatin 20mg tablet PO SCH (07:15)
[2019-01-18] MEDS: ROPINIRole 1mg tablet PO SCH ×3 (07:15→21:00)
[2019-01-18] MEDS ORDERED: levoFLOXACIN-Levaquin 750MG/D5 150 ML IV SCH (08:00)
[2019-01-18] MEDS ORDERED: furosemide 40mg/4ml inj IV ONE (08:10)
--- NOTE | 2019-01-18 08:10 | NUR ---
Dr. Dunbar in to see pt. Pt. c/o SOB. Orders received for CXR and Lasix x 1 dose. Pt. may transfer out of ICU per Dr. Dunbar today.
--- NOTE | 2019-01-18 10:55 | NUR ---
Patient in room CICU 2005. I have received report from Erendira SUMMERS and had the opportunity to ask questions and assume patient care. Awaiting patient's arrival to the unit.
--- NOTE | 2019-01-18 11:05 | NUR ---
Patient arrived to the unit accompanied by ICU personnel. Patient sitting in recliner, oxygen in place running at 2L, telemetry monitoring continued, vital signs obtained, patient belongings placed in closet in room, and patient oriented to room and call light. Will continue to monitor.
--- NOTE | 2019-01-18 11:13 | NUR ---
Pt. transferred to [facility] 5189C after giving phone report to Johann SUMMERS with all personal belongings in stable condition.
--- NOTE | 2019-01-18 18:23 | NUR ---
Problems reprioritized. Patient report given, questions answered & plan of care reviewed with Jonnathan SUMMERS.
--- NOTE | 2019-01-18 18:46 | NUR ---
Patient in room PCU 3026. I have received report from MELINA ODOM and had the opportunity to ask questions and assume patient care. PATIENT AWAKE AND CONSUMING EVENING MEAL. STABLE AT THIS TIME. WILL CONTINUE TO MONITOR CLOSELY.
[2019-01-18] MEDS ORDERED: warfarin 1mg tablet PO ONE (21:00)
[2019-01-19 02:52] VITALS: BP 135/69
[2019-01-19] MEDS ORDERED: VANCOMYCIN LEVEL IV ONE (03:30)
[2019-01-19 05:30] LABS: BASOPHILS % (AUTO) 0.3 % (0-1); EOSINOPHILS # (AUTO) 0.2 X10'3 (0-0.9); EOSINOPHILS % (AUTO) 3.7 % (0-6); HEMATOCRIT 25.3 % (35.0-45.0); HEMOGLOBIN 8.2 g/dl (12.0-16.0); LYMPHOCYTES # (AUTO) 0.4 X10'3 (1.1-4.8); LYMPHOCYTES % (AUTO) 7.4 % (21-51); MEAN CORPUSCULAR HEMOGLOBIN 30.6 PG (27.0-31.0); MEAN CORPUSCULAR HGB CONC 32.4 g/dL (33.0-36.5); MEAN CORPUSCULAR VOLUME 94.5 FL (78-98); MONOCYTES # (AUTO) 0.3 X10'3 (0-0.9); MONOCYTES % (AUTO) 5.9 % (2-12); NEUTROPHILS # (AUTO) 4.3 X10'3 (1.8-7.7); NEUTROPHILS % (AUTO) 82.7 % (42-75); PLATELET COUNT 142 X10'3 (140-440); RED BLOOD COUNT 2.67 X10'6 (4.20-5.60); RED CELL DISTRIBUTION WIDTH 16.4 % (11.5-14.5); WHITE BLOOD COUNT 5.2 X10'3 (4.5-11.0)
[2019-01-19 05:33] LABS: PARTIAL THROMBOPLASTIN TIME 38 SECONDS (22-32)
[2019-01-19 05:38] LABS: ALANINE AMINOTRANSFERASE 57 U/L (12-78); ALBUMIN 2.3 G/DL (3.4-5.0); ALBUMIN/GLOBULIN RATIO 0.8 (1.1-1.5); ALKALINE PHOSPHATASE 90 IU/L (46-116); ANION GAP 3 (8-16); ASPARTATE AMINO TRANSFERASE 27 U/L (10-37); BILIRUBIN,TOTAL 0.5 MG/DL (0.1-1.0); BLOOD UREA NITROGEN 22 MG/DL (7-18); BUN/CREATININE RATIO 17.2 (6.6-38.0); CHLORIDE 107 MMOL/L (99-107); CREATININE 1.28 MG/DL (0.40-0.90); GLUCOSE 82 MG/DL (70-104); MAGNESIUM 1.8 MG/DL (1.5-2.4); PHOSPHORUS 3.5 MG/DL (2.3-4.5); SODIUM 144 MMOL/L (135-145); TOTAL CARBON DIOXIDE 34.2 MMOL/L (24-32); TOTAL PROTEIN 5.2 G/DL (6.4-8.2); eGFR 39 ML/MIN
[2019-01-19 06:00] VITALS: BP 115/50
--- NOTE | 2019-01-19 06:00 | NUR ---
Patient in room PCU 3026. I have received report from Jonnathan SUMMERS and had the opportunity to ask questions and assume patient care.
--- NOTE | 2019-01-19 06:37 | NUR ---
Problems reprioritized. Patient report given, questions answered & plan of care reviewed with MELINA Masters.
[2019-01-19] MEDS: ROPINIRole 1mg tablet PO SCH ×3 (07:23→21:00)
[2019-01-19] MEDS: cefepime 1GM/NS ADD-VANTAGE 100 ML IV SCH (07:23)
[2019-01-19] MEDS: lactobacillus rhamnosus 10,000 MMU CELLS/CAPSULE PO SCH ×2 (07:23→20:25)
[2019-01-19] MEDS: amiodarone 200mg tablet PO SCH (07:24)
[2019-01-19] MEDS: docusate sod 100mg capsule PO SCH ×2 (07:24→20:26)
[2019-01-19] MEDS: atorvastatin 20mg tablet PO SCH (07:24)
[2019-01-19] MEDS: pantoprazole 40mg Tablet.DR PO SCH (07:24)
[2019-01-19 11:00] VITALS: BP 119/50
[2019-01-19] MEDS ORDERED: meropenem inj 1 GM in normal saline 100ml IV soln 100 ML IV ONE (14:55)
[2019-01-19 15:00] VITALS: BP 124/55
--- NOTE | 2019-01-19 16:34 | NUR ---
Right IJ removed per MD orders and per protocol with charge nurse present, pressure held for 5 minutes, catheter tip intact,bed low/locked, urostomy bag changed using patient's supplies
--- NOTE | 2019-01-19 18:00 | NUR ---
Problems reprioritized. Patient report given, questions answered & plan of care reviewed with Jonnathan SUMMERS.
--- NOTE | 2019-01-19 18:15 | NUR ---
Patient in room PCU 3022t. I have received report from MELINA Masters and had the opportunity to ask questions and assume patient care.
[2019-01-19 19:00] VITALS: BP 129/47
[2019-01-19] MEDS ORDERED: warfarin 1mg tablet PO ONE (21:00)
[2019-01-19 23:00] VITALS: BP 127/53
[2019-01-19] MEDS: meropenem inj 500 MG in normal saline 100ml IV soln 100 ML IV SCH (23:44)
[2019-01-20 03:00] VITALS: BP 171/53
[2019-01-20 04:47] LABS: BASOPHILS % (AUTO) 0.4 % (0-1); EOSINOPHILS # (AUTO) 0.1 X10'3 (0-0.9); EOSINOPHILS % (AUTO) 3.4 % (0-6); LYMPHOCYTES # (AUTO) 0.4 X10'3 (1.1-4.8); LYMPHOCYTES % (AUTO) 9.5 % (21-51); MEAN CORPUSCULAR HEMOGLOBIN 30.4 PG (27.0-31.0); MEAN CORPUSCULAR HGB CONC 32.1 g/dL (33.0-36.5); MEAN CORPUSCULAR VOLUME 94.6 FL (78-98); MEAN PLATELET VOLUME 8.5 FL (7.4-10.4); MONOCYTES # (AUTO) 0.3 X10'3 (0-0.9); MONOCYTES % (AUTO) 7.8 % (2-12); NEUTROPHILS # (AUTO) 3.5 X10'3 (1.8-7.7); NEUTROPHILS % (AUTO) 78.9 % (42-75); PLATELET COUNT 134 X10'3 (140-440); RED BLOOD COUNT 2.64 X10'6 (4.20-5.60); RED CELL DISTRIBUTION WIDTH 16.4 % (11.5-14.5); WHITE BLOOD COUNT 4.4 X10'3 (4.5-11.0)
[2019-01-20 04:51] LABS: PARTIAL THROMBOPLASTIN TIME 37 SECONDS (22-32)
[2019-01-20 05:04] LABS: ALANINE AMINOTRANSFERASE 54 U/L (12-78); ALBUMIN 2.3 G/DL (3.4-5.0); ALBUMIN/GLOBULIN RATIO 0.8 (1.1-1.5); ALKALINE PHOSPHATASE 89 IU/L (46-116); ANION GAP 2 (8-16); ASPARTATE AMINO TRANSFERASE 28 U/L (10-37); BILIRUBIN,TOTAL 0.4 MG/DL (0.1-1.0); BLOOD UREA NITROGEN 19 MG/DL (7-18); CALCIUM 8.1 MG/DL (8.5-10.1); CHLORIDE 108 MMOL/L (99-107); CREATININE 1.27 MG/DL (0.40-0.90); GLUCOSE 89 MG/DL (70-104); MAGNESIUM 2.1 MG/DL (1.5-2.4); PHOSPHORUS 3.4 MG/DL (2.3-4.5); SODIUM 144 MMOL/L (135-145); TOTAL CARBON DIOXIDE 33.6 MMOL/L (24-32); TOTAL PROTEIN 5.2 G/DL (6.4-8.2); eGFR 40 ML/MIN
[2019-01-20 06:00] VITALS: BP 124/48
--- NOTE | 2019-01-20 06:13 | NUR ---
Patient in room PCU 3026. I have received report from Jonnathan SUMMERS and had the opportunity to ask questions and assume patient care.
--- NOTE | 2019-01-20 06:13 | NUR ---
Problems reprioritized. Patient report given, questions answered & plan of care reviewed with MELINA Gaspar and MELINA Toscano.
[2019-01-20] MEDS: pantoprazole 40mg Tablet.DR PO SCH (07:45)
[2019-01-20] MEDS: meropenem inj 500 MG in normal saline 100ml IV soln 100 ML IV SCH (07:45)
[2019-01-20] MEDS: docusate sod 100mg capsule PO SCH ×2 (07:45→20:52)
[2019-01-20] MEDS: ROPINIRole 1mg tablet PO SCH ×3 (07:46→20:52)
[2019-01-20] MEDS: atorvastatin 20mg tablet PO SCH (07:46)
[2019-01-20] MEDS: lactobacillus rhamnosus 10,000 MMU CELLS/CAPSULE PO SCH ×2 (07:46→20:51)
[2019-01-20] MEDS: amiodarone 200mg tablet PO SCH (07:58)
[2019-01-20 11:28] VITALS: BP 134/58
--- NOTE | 2019-01-20 17:57 | NUR ---
[place]rientee documentation: I have reviewed and agree with all interventions, assessments performed and documented by MELINA Toscano. [place] Medication Administration: For this medication-pass time frame, all medication were reviewed, dispensed, administered and documented per hospital policy by MELINA Toscano.
[2019-01-20 18:00] VITALS: BP 131/51
--- NOTE | 2019-01-20 18:21 | NUR ---
Problems reprioritized. Patient report given, questions answered & plan of care reviewed with Jonnathan SUMMERS.
--- NOTE | 2019-01-20 18:34 | NUR ---
Patient in room U 3024l. I have received report from MELINA Gaspar and had the opportunity to ask questions and assume patient care.
[2019-01-20] MEDS: meropenem inj 1 GM in normal saline 100ml IV soln 100 ML IV SCH (20:53)
[2019-01-20] MEDS ORDERED: warfarin 1mg tablet PO ONE (21:00)
[2019-01-20 22:00] VITALS: BP 134/54
[2019-01-21 03:00] VITALS: BP 118/51
--- NOTE | 2019-01-21 06:07 | NUR ---
Problems reprioritized. Patient report given, questions answered & plan of care reviewed with MELINA Gaspar.
[2019-01-21 06:09] LABS: BASOPHILS % (AUTO) 0.8 % (0-1); EOSINOPHILS # (AUTO) 0.2 X10'3 (0-0.9); EOSINOPHILS % (AUTO) 5.5 % (0-6); HEMATOCRIT 25.3 % (35.0-45.0); HEMOGLOBIN 8.2 g/dl (12.0-16.0); LYMPHOCYTES # (AUTO) 0.6 X10'3 (1.1-4.8); LYMPHOCYTES % (AUTO) 16.2 % (21-51); MEAN CORPUSCULAR HEMOGLOBIN 30.6 PG (27.0-31.0); MEAN CORPUSCULAR HGB CONC 32.5 g/dL (33.0-36.5); MEAN CORPUSCULAR VOLUME 94.4 FL (78-98); MEAN PLATELET VOLUME 8.7 FL (7.4-10.4); MONOCYTES # (AUTO) 0.4 X10'3 (0-0.9); MONOCYTES % (AUTO) 9.6 % (2-12); NEUTROPHILS # (AUTO) 2.6 X10'3 (1.8-7.7); NEUTROPHILS % (AUTO) 67.9 % (42-75); PLATELET COUNT 119 X10'3 (140-440); RED BLOOD COUNT 2.68 X10'6 (4.20-5.60); RED CELL DISTRIBUTION WIDTH 16.3 % (11.5-14.5); WHITE BLOOD COUNT 3.9 X10'3 (4.5-11.0)
[2019-01-21 06:21] LABS: PARTIAL THROMBOPLASTIN TIME 35 SECONDS (22-32)
[2019-01-21 06:35] LABS: ALANINE AMINOTRANSFERASE 48 U/L (12-78); ALBUMIN 2.4 G/DL (3.4-5.0); ALBUMIN/GLOBULIN RATIO 0.8 (1.1-1.5); ALKALINE PHOSPHATASE 90 IU/L (46-116); ANION GAP 5 (8-16); ASPARTATE AMINO TRANSFERASE 28 U/L (10-37); BILIRUBIN,TOTAL 0.4 MG/DL (0.1-1.0); BLOOD UREA NITROGEN 19 MG/DL (7-18); BUN/CREATININE RATIO 16.5 (6.6-38.0); CALCIUM 8.3 MG/DL (8.5-10.1); CHLORIDE 107 MMOL/L (99-107); CREATININE 1.15 MG/DL (0.40-0.90); GLUCOSE 84 MG/DL (70-104); MAGNESIUM 2.2 MG/DL (1.5-2.4); PHOSPHORUS 3.2 MG/DL (2.3-4.5); POTASSIUM 3.9 MMOL/L (3.5-5.1); SODIUM 143 MMOL/L (135-145); TOTAL CARBON DIOXIDE 31.5 MMOL/L (24-32); TOTAL PROTEIN 5.3 G/DL (6.4-8.2); eGFR 45 ML/MIN
[2019-01-21 07:00] VITALS: BP 125/54
[2019-01-21] MEDS: meropenem inj 1 GM in normal saline 100ml IV soln 100 ML IV SCH ×2 (07:29→20:23)
[2019-01-21] MEDS: pantoprazole 40mg Tablet.DR PO SCH (07:29)
[2019-01-21] MEDS: lactobacillus rhamnosus 10,000 MMU CELLS/CAPSULE PO SCH ×2 (07:29→20:24)
[2019-01-21] MEDS: atorvastatin 20mg tablet PO SCH (07:29)
[2019-01-21] MEDS: docusate sod 100mg capsule PO SCH ×2 (07:29→20:00)
[2019-01-21] MEDS: ROPINIRole 1mg tablet PO SCH ×3 (07:29→20:24)
[2019-01-21] MEDS: amiodarone 200mg tablet PO SCH ×2 (07:29→07:33)
[2019-01-21 11:00] VITALS: BP 139/57
--- NOTE | 2019-01-21 13:27 | NUR ---
Initial: Pt admit with sepsis, respiratory distress, and PNA. Per MD notes pt clinically improving and urine culture positive for E Coli. Pt currently on a heart healthy diet with documented 75-100% PO intake meeting nutrient needs. LB 01/20. Pt pending discharge to rehab. Will continue to follow. Recommendations: 1) Continue heart healthy diet 2) Wt per rx Addendum: 01/21/19 at [address] Amended: Links added.
[2019-01-21 15:00] VITALS: BP 150/60
[2019-01-21 18:00] VITALS: BP 160/50
--- NOTE | 2019-01-21 18:18 | NUR ---
Patient in room PCU 3024R. I have received report from MELINA Gaspar and had the opportunity to ask questions and assume patient care. Pt is resting comfortably in bed. Pt denies pain, CP. n/v, or dizziness. Will continue to monitor
--- NOTE | 2019-01-21 18:18 | NUR ---
Problems reprioritized. Patient report given, questions answered & plan of care reviewed with Lex SUMMERS.
[2019-01-21] MEDS ORDERED: warfarin 1mg tablet PO ONE (21:00)
[2019-01-21 22:00] VITALS: BP 138/60
[2019-01-22 02:00] VITALS: BP 116/54
[2019-01-22 06:00] VITALS: BP 149/55
--- NOTE | 2019-01-22 06:40 | NUR ---
Problems reprioritized. Patient report given, questions answered & plan of care reviewed with MELINA Paez. Pt is stable at shift change
--- NOTE | 2019-01-22 06:40 | NUR ---
Patient in room PCU 3026. I have received report from MELINA Burnett and had the opportunity to ask questions and assume patient care.
[2019-01-22] MEDS: meropenem inj 1 GM in normal saline 100ml IV soln 100 ML IV SCH (07:47)
[2019-01-22] MEDS: ROPINIRole 1mg tablet PO SCH (07:47)
[2019-01-22] MEDS: pantoprazole 40mg Tablet.DR PO SCH (07:47)
[2019-01-22] MEDS: amiodarone 200mg tablet PO SCH (07:47)
[2019-01-22] MEDS: lactobacillus rhamnosus 10,000 MMU CELLS/CAPSULE PO SCH (07:48)
[2019-01-22] MEDS: docusate sod 100mg capsule PO SCH (07:48)
[2019-01-22] MEDS: atorvastatin 20mg tablet PO SCH (07:48)
[2019-01-22 08:51] LABS: BASOPHILS % (AUTO) 0.7 % (0-1); EOSINOPHILS # (AUTO) 0.2 X10'3 (0-0.9); EOSINOPHILS % (AUTO) 3.7 % (0-6); HEMATOCRIT 30.9 % (35.0-45.0); HEMOGLOBIN 9.9 g/dl (12.0-16.0); LYMPHOCYTES # (AUTO) 0.8 X10'3 (1.1-4.8); MEAN CORPUSCULAR HEMOGLOBIN 30.6 PG (27.0-31.0); MEAN CORPUSCULAR HGB CONC 32.2 g/dL (33.0-36.5); MEAN PLATELET VOLUME 8.5 FL (7.4-10.4); MONOCYTES # (AUTO) 0.4 X10'3 (0-0.9); NEUTROPHILS # (AUTO) 3.2 X10'3 (1.8-7.7); NEUTROPHILS % (AUTO) 70.6 % (42-75); PLATELET COUNT 140 X10'3 (140-440); RED BLOOD COUNT 3.25 X10'6 (4.20-5.60); RED CELL DISTRIBUTION WIDTH 16.2 % (11.5-14.5); WHITE BLOOD COUNT 4.6 X10'3 (4.5-11.0)
[2019-01-22 09:03] LABS: PARTIAL THROMBOPLASTIN TIME 33 SECONDS (22-32)
[2019-01-22 09:06] LABS: ALANINE AMINOTRANSFERASE 46 U/L (12-78); ALBUMIN 2.9 G/DL (3.4-5.0); ALBUMIN/GLOBULIN RATIO 0.9 (1.1-1.5); ALKALINE PHOSPHATASE 111 IU/L (46-116); ANION GAP 3 (8-16); ASPARTATE AMINO TRANSFERASE 24 U/L (10-37); BILIRUBIN,TOTAL 0.4 MG/DL (0.1-1.0); BLOOD UREA NITROGEN 17 MG/DL (7-18); CHLORIDE 106 MMOL/L (99-107); CREATININE 1.13 MG/DL (0.40-0.90); GLUCOSE 96 MG/DL (70-104); MAGNESIUM 2.2 MG/DL (1.5-2.4); POTASSIUM 4.2 MMOL/L (3.5-5.1); SODIUM 143 MMOL/L (135-145); TOTAL CARBON DIOXIDE 33.8 MMOL/L (24-32); TOTAL PROTEIN 6.3 G/DL (6.4-8.2); eGFR 46 ML/MIN
--- NOTE | 2019-01-22 10:44 | NUR ---
Report called to Wendy at [facility].
[2019-01-22 11:00] VITALS: BP 115/50
--- NOTE | 2019-01-22 11:28 | NUR ---
Priscila cargo picked up patient at 1115. Tele returned. IV's left in for [facility] to continue ABX. Stable for transfer per MD.
== END 2019-01-22 11:11 | DRG 871 ==
LOC: ER 00:41 → CICU 2S 09:04 → PCU 3S 01-18 11:05
PROVIDERS: ADMIT Internal Medicine Critical Care Medicine; ATTEND Internal Medicine Critical Care Medicine
PROC: 5A09357 Assistance with Respiratory Ventilation, Less than 24 Consecutive Hours, Continuous Positive Airway Pressure (ICD-10-PCS; principal; 2019-01-16)
PROC: 02HV33Z Insertion of Infusion Device into Superior Vena Cava, Percutaneous Approach (ICD-10-PCS; 2019-01-16)
PROC: B548ZZA Ultrasonography of Superior Vena Cava, Guidance (ICD-10-PCS; 2019-01-16)
PROC: 5A09357 Assistance with Respiratory Ventilation, Less than 24 Consecutive Hours, Continuous Positive Airway Pressure (ICD-10-PCS; 2019-01-17)
DX: A41.9 Sepsis, unspecified organism (principal); J18.1 Lobar pneumonia, unspecified organism; D68.9 Coagulation defect, unspecified; I13.0 Hypertensive heart and chronic kidney disease with heart failure and stage 1 through stage 4 chronic kidney disease, or unspecified chronic kidney disease; J44.0 Chronic obstructive pulmonary disease with (acute) lower respiratory infection; N17.9 Acute kidney failure, unspecified; N39.0 Urinary tract infection, site not specified; E87.4 Mixed disorder of acid-base balance; I95.9 Hypotension, unspecified; I44.7 Left bundle-branch block, unspecified; B96.20 Unspecified Escherichia coli [E. coli] as the cause of diseases classified elsewhere; R06.03 Acute respiratory distress; E11.22 Type 2 diabetes mellitus with diabetic chronic kidney disease; E78.00 Pure hypercholesterolemia, unspecified; E78.5 Hyperlipidemia, unspecified; Z96.642 Presence of left artificial hip joint; R09.02 Hypoxemia; Z66 Do not resuscitate; D64.9 Anemia, unspecified; I25.10 Atherosclerotic heart disease of native coronary artery without angina pectoris; I35.9 Nonrheumatic aortic valve disorder, unspecified; I50.9 Heart failure, unspecified; N18.3 Chronic kidney disease, stage 3 (moderate); R65.20 Severe sepsis without septic shock; Z16.12 Extended spectrum beta lactamase (ESBL) resistance; Z85.51 Personal history of malignant neoplasm of bladder; Z87.891 Personal history of nicotine dependence; Z90.710 Acquired absence of both cervix and uterus; Z93.6 Other artificial openings of urinary tract status; Z95.2 Presence of prosthetic heart valve; Z88.0 Allergy status to penicillin; Z79.899 Other long term (current) drug therapy
CPT/HCPCS: 36415; 36556; 36600; 71045; 76937; 80053; 80076; 81001; 82803; 82948; 83036; 83605; 83735; 83880; 84100; 84145; 84439; 84443; 84484; 85018; 85025; 85045; 85379; 85384; 85610; 85730; 86885; 86900; 86901; 87040; 87077; 87081; 87088; 87186; 93005; 93306; 94660; 94760; 96365; 96368; 97110; 97112; 97116; 97162; 97530; 99291; C9113; G0378; J0692; J0696; J1940; J1956; J2185; J3370; J3430; J3490; J7040; J7060; Q0163

== ENCOUNTER 2019-03-24 21:43 | Inpatient (IN) | payer MEDICARE ==
[~2019-03-24] VITALS: Ht 160 cm; Wt 81.0 kg
[~2019-03-24 21:43] MED LIST changes: +ALB0.5UD IH
--- NOTE | 2019-03-24 22:17 | NUR ---
TRIALED PATIENT ON RA PER MD, O2 SATURATION DROPPED TO 86%. PATIENT PLACED ON NC @ 2L AT THIS TIME O2 SATURATION IS 95%
[2019-03-24 22:22] LABS: ALANINE AMINOTRANSFERASE 25 U/L (12-78); ALBUMIN 3.3 G/DL (3.4-5.0); ALBUMIN/GLOBULIN RATIO 0.9 (1.1-1.5); ALKALINE PHOSPHATASE 120 IU/L (46-116); ANION GAP 8 (8-16); ASPARTATE AMINO TRANSFERASE 24 U/L (10-37); BASOPHILS # (AUTO) 0.1 X10'3 (0-0.2); BASOPHILS % (AUTO) 0.6 % (0-1); BILIRUBIN,TOTAL 0.4 MG/DL (0.1-1.0); BLOOD UREA NITROGEN 33 MG/DL (7-18); BUN/CREATININE RATIO 25.4 (6.6-38.0); CALCIUM 8.7 MG/DL (8.5-10.1); CHLORIDE 111 MMOL/L (99-107); EOSINOPHILS # (AUTO) 0.1 X10'3 (0-0.9); EOSINOPHILS % (AUTO) 0.5 % (0-6); GLUCOSE 119 MG/DL (70-104); HEMATOCRIT 26.3 % (35.0-45.0); HEMOGLOBIN 8.1 g/dl (12.0-16.0); LYMPHOCYTES # (AUTO) 0.4 X10'3 (1.1-4.8); LYMPHOCYTES % (AUTO) 3.4 % (21-51); MEAN CORPUSCULAR HEMOGLOBIN 28.2 PG (27.0-31.0); MEAN CORPUSCULAR HGB CONC 30.8 g/dL (33.0-36.5); MEAN CORPUSCULAR VOLUME 91.5 FL (78-98); MEAN PLATELET VOLUME 8.2 FL (7.4-10.4); MONOCYTES # (AUTO) 0.4 X10'3 (0-0.9); MONOCYTES % (AUTO) 3.6 % (2-12); NEUTROPHILS # (AUTO) 11.2 X10'3 (1.8-7.7); NEUTROPHILS % (AUTO) 91.9 % (42-75); PLATELET COUNT 180 X10'3 (140-440); POTASSIUM 4.5 MMOL/L (3.5-5.1); RED BLOOD COUNT 2.88 X10'6 (4.20-5.60); RED CELL DISTRIBUTION WIDTH 15.6 % (11.5-14.5); SODIUM 146 MMOL/L (135-145); TOTAL CARBON DIOXIDE 27.1 MMOL/L (24-32); TOTAL PROTEIN 6.8 G/DL (6.4-8.2); WHITE BLOOD COUNT 12.2 X10'3 (4.5-11.0); eGFR 39 ML/MIN
[2019-03-24] MEDS ORDERED: COU4T PO (22:29)
[2019-03-24] MEDS ORDERED: CLOB15CR4 TOP (22:29)
[2019-03-24] MEDS ORDERED: ALBU8.5H8 IH (22:29)
[2019-03-24] MEDS ORDERED: furosemide 40mg/4ml inj IV ONE (22:30)
[2019-03-24] MEDS ORDERED: albuterol 2.5 MG/3 ML nebule NEB ONE (22:45)
[2019-03-24] MEDS ORDERED: ondansetron/PF 4mg/2ml inj IV PRN (23:00)
[2019-03-24] MEDS ORDERED: mag hydrox/Alum hydrox/simeth 30ml oral suspension PO PRN (23:00)
[2019-03-24] MEDS ORDERED: morphine 2 MG/ML inj. syringe IV PRN ×2 (23:00)
[2019-03-24] MEDS ORDERED: magnesium hydroxide 30ml (MOM) UD suspension PO PRN (23:00)
[2019-03-24] MEDS ORDERED: acetaminophen 325mg tablet PO PRN ×2 (23:00)
--- NOTE | 2019-03-24 23:24 | NUR ---
SPOKE WITH DR ESTRELLA REGARDING PATIENT'S ADMIT ORDER OF PCU. DR ESTRELLA AGREED THAT PATIENT COULD BE ADMITTED TO MED/[facility] WITH TELE INSTEAD.
--- NOTE | 2019-03-24 23:56 | NUR ---
CONTACT: SARAH (DAUGHTER) [phone]
--- NOTE | 2019-03-25 00:30 | NUR ---
PATIENT PLACED ON HOSPITAL BED FOR COMFORT
[2019-03-25 04:29] LABS: BASOPHILS % (AUTO) 0.5 % (0-1); EOSINOPHILS % (AUTO) 0.4 % (0-6); HEMATOCRIT 25.2 % (35.0-45.0); HEMOGLOBIN 7.9 g/dl (12.0-16.0); LYMPHOCYTES # (AUTO) 0.7 X10'3 (1.1-4.8); LYMPHOCYTES % (AUTO) 6.8 % (21-51); MEAN CORPUSCULAR HEMOGLOBIN 28.7 PG (27.0-31.0); MEAN CORPUSCULAR HGB CONC 31.6 g/dL (33.0-36.5); MEAN PLATELET VOLUME 8.3 FL (7.4-10.4); MONOCYTES # (AUTO) 0.5 X10'3 (0-0.9); MONOCYTES % (AUTO) 4.7 % (2-12); NEUTROPHILS # (AUTO) 8.6 X10'3 (1.8-7.7); NEUTROPHILS % (AUTO) 87.6 % (42-75); PLATELET COUNT 160 X10'3 (140-440); RED BLOOD COUNT 2.76 X10'6 (4.20-5.60); RED CELL DISTRIBUTION WIDTH 15.3 % (11.5-14.5); WHITE BLOOD COUNT 9.8 X10'3 (4.5-11.0)
[2019-03-25 04:43] LABS: ANION GAP 4 (8-16); BLOOD UREA NITROGEN 32 MG/DL (7-18); BUN/CREATININE RATIO 24.2 (6.6-38.0); CALCIUM 8.8 MG/DL (8.5-10.1); CHLORIDE 111 MMOL/L (99-107); CREATININE 1.32 MG/DL (0.40-0.90); GLUCOSE 99 MG/DL (70-104); POTASSIUM 4.2 MMOL/L (3.5-5.1); SODIUM 144 MMOL/L (135-145); TOTAL CARBON DIOXIDE 29.1 MMOL/L (24-32); eGFR 38 ML/MIN
--- NOTE | 2019-03-25 06:16 | NUR ---
received report from CLAUDE SUMMERS
--- NOTE | 2019-03-25 06:45 | NUR ---
Patient in room ED 9. I have received report from Jonnathan, FIXTURE REPAIRER FABRICATOR Nurse and had the opportunity to ask questions and assume patient care.
--- NOTE | 2019-03-25 07:15 | NUR ---
arrived to PCU from ER alert and oriented. Able to ambulate short distance to get jn bed.
[2019-03-25] MEDS ORDERED: warfarin 4mg tablet PO SCH (08:00)
[2019-03-25] MEDS: furosemide 20 MG/2 ML vial IV SCH ×2 (08:00→20:34)
[2019-03-25] MEDS: clobetasol 0.05% cream 30gm TP SCH ×2 (08:00→20:00)
[2019-03-25] MEDS: pantoprazole 40mg Tablet.DR PO SCH (08:46)
[2019-03-25] MEDS: atorvastatin 20mg tablet PO SCH (08:46)
[2019-03-25] MEDS: amiodarone 200mg tablet PO SCH (08:46)
[2019-03-25 11:00] VITALS: BP 94/44
--- NOTE | 2019-03-25 11:10 | NUR ---
Vijaya Phelan 3010 Pt c/o Restless Leg Syndrome takes Ropinirole 2 mg po tid at home. *page to Oj
[2019-03-25 11:19] LABS: % IRON SATURATION 7 % (11-46); IRON 23 UG/DL (49-151); TOTAL IRON BINDING CAPACITY 323 UG/DL (259-388)
[2019-03-25] MEDS ORDERED: ROPI2TAB5 PO (12:01)
[2019-03-25] MEDS: ROPINIRole 1mg tablet PO SCH ×2 (12:43→20:34)
[2019-03-25 15:00] VITALS: BP 106/56
--- NOTE | 2019-03-25 18:00 | NUR ---
Problems reprioritized. Patient report given, questions answered & plan of care reviewed with MELINA Huang.
--- NOTE | 2019-03-25 18:20 | NUR ---
Patient in room PCU 3010. I have received report from Bean SUMMERS and had the opportunity to ask questions and assume patient care. Patient is eating, she is comfortable and has no immediate needs. Will continue to monitor.
[2019-03-25 19:00] VITALS: BP 137/71
[2019-03-25] MEDS ORDERED: warfarin 1mg tablet PO ONE (21:00)
[2019-03-25 23:00] VITALS: BP 107/56
[2019-03-26 03:00] VITALS: BP 99/45
[2019-03-26 06:00] VITALS: BP 100/59
--- NOTE | 2019-03-26 06:00 | NUR ---
Patient in room PCU 3010. I have received report from Reina SUMMERS and had the opportunity to ask questions and assume patient care.
[2019-03-26 06:05] LABS: BASOPHILS % (AUTO) 0.5 % (0-1); EOSINOPHILS # (AUTO) 0.2 X10'3 (0-0.9); EOSINOPHILS % (AUTO) 3.2 % (0-6); HEMATOCRIT 24.2 % (35.0-45.0); HEMOGLOBIN 7.7 g/dl (12.0-16.0); LYMPHOCYTES # (AUTO) 0.8 X10'3 (1.1-4.8); LYMPHOCYTES % (AUTO) 13.4 % (21-51); MEAN CORPUSCULAR HEMOGLOBIN 28.4 PG (27.0-31.0); MEAN CORPUSCULAR HGB CONC 31.7 g/dL (33.0-36.5); MEAN CORPUSCULAR VOLUME 89.6 FL (78-98); MEAN PLATELET VOLUME 8.6 FL (7.4-10.4); MONOCYTES # (AUTO) 0.4 X10'3 (0-0.9); NEUTROPHILS # (AUTO) 4.3 X10'3 (1.8-7.7); NEUTROPHILS % (AUTO) 75.9 % (42-75); PLATELET COUNT 158 X10'3 (140-440); RED CELL DISTRIBUTION WIDTH 15.2 % (11.5-14.5); WHITE BLOOD COUNT 5.7 X10'3 (4.5-11.0)
[2019-03-26 06:18] LABS: ALBUMIN 2.7 G/DL (3.4-5.0); ANION GAP 4 (8-16); BLOOD UREA NITROGEN 32 MG/DL (7-18); BUN/CREATININE RATIO 23.2 (6.6-38.0); CALCIUM 8.4 MG/DL (8.5-10.1); CHLORIDE 107 MMOL/L (99-107); CREATININE 1.38 MG/DL (0.40-0.90); GLUCOSE 88 MG/DL (70-104); POTASSIUM 4.1 MMOL/L (3.5-5.1); SODIUM 142 MMOL/L (135-145); TOTAL CARBON DIOXIDE 30.7 MMOL/L (24-32); eGFR 36 ML/MIN
--- NOTE | 2019-03-26 06:20 | NUR ---
Problems reprioritized. Patient report given, questions answered & plan of care reviewed with Qasim SUMMERS.
[2019-03-26] MEDS: clobetasol 0.05% cream 30gm TP SCH ×2 (08:00→20:00)
[2019-03-26] MEDS: furosemide 20 MG/2 ML vial IV SCH ×2 (08:11→19:08)
[2019-03-26] MEDS: atorvastatin 20mg tablet PO SCH (08:11)
[2019-03-26] MEDS: pantoprazole 40mg Tablet.DR PO SCH (08:11)
[2019-03-26] MEDS: ROPINIRole 1mg tablet PO SCH ×3 (08:11→20:34)
[2019-03-26] MEDS: amiodarone 200mg tablet PO SCH (08:11)
[2019-03-26 11:00] VITALS: BP 146/78
[2019-03-26] MEDS: albuterol 2.5 MG/3 ML nebule NEB PRN ×3 (11:08→23:20)
--- NOTE | 2019-03-26 13:00 | NUR ---
I have reviewed and agree with all medications administered and interventions performed by ROAD FREIGHT FIRER Student Faraz Nicolas.
[2019-03-26 15:00] VITALS: BP 121/69
--- NOTE | 2019-03-26 15:28 | NUR ---
Pt c/o wheezing, requesting breathing tx. Tx is available, RT notified.
[2019-03-26 18:00] VITALS: BP 126/66
--- NOTE | 2019-03-26 18:00 | NUR ---
Patient in room PCU 3010. I have received report from Qasim SUMMERS and had the opportunity to ask questions and assume patient care.
--- NOTE | 2019-03-26 18:05 | NUR ---
Problems reprioritized. Patient report given, questions answered & plan of care reviewed with Oneyda SUMMERS.
[2019-03-26 22:00] VITALS: BP 119/56
[2019-03-27 02:00] VITALS: BP 103/67
--- NOTE | 2019-03-27 05:30 | NUR ---
END NOC NOTE Patient slept well tonight, Urostomy changed once tonight, turns independently in bed. Will continue to monitor.
[2019-03-27 06:00] VITALS: BP 130/66
--- NOTE | 2019-03-27 06:00 | NUR ---
Patient in room PCU 3010. I have received report from Oneyda SUMMERS and had the opportunity to ask questions and assume patient care.
[2019-03-27 06:20] LABS: BASOPHILS % (AUTO) 0.6 % (0-1); EOSINOPHILS # (AUTO) 0.2 X10'3 (0-0.9); EOSINOPHILS % (AUTO) 3.8 % (0-6); HEMATOCRIT 24.7 % (35.0-45.0); HEMOGLOBIN 7.9 g/dl (12.0-16.0); LYMPHOCYTES # (AUTO) 0.7 X10'3 (1.1-4.8); LYMPHOCYTES % (AUTO) 12.9 % (21-51); MEAN CORPUSCULAR HEMOGLOBIN 28.9 PG (27.0-31.0); MEAN CORPUSCULAR HGB CONC 32.1 g/dL (33.0-36.5); MEAN CORPUSCULAR VOLUME 89.8 FL (78-98); MEAN PLATELET VOLUME 8.8 FL (7.4-10.4); MONOCYTES # (AUTO) 0.4 X10'3 (0-0.9); MONOCYTES % (AUTO) 8.1 % (2-12); NEUTROPHILS % (AUTO) 74.6 % (42-75); PLATELET COUNT 144 X10'3 (140-440); RED BLOOD COUNT 2.75 X10'6 (4.20-5.60); RED CELL DISTRIBUTION WIDTH 15.2 % (11.5-14.5); WHITE BLOOD COUNT 5.3 X10'3 (4.5-11.0)
--- NOTE | 2019-03-27 06:33 | NUR ---
Problems reprioritized. Patient report given, questions answered & plan of care reviewed with Qasim SUMMERS.
[2019-03-27 06:35] LABS: ALBUMIN 2.8 G/DL (3.4-5.0); ANION GAP 6 (8-16); BLOOD UREA NITROGEN 35 MG/DL (7-18); BUN/CREATININE RATIO 24.1 (6.6-38.0); CALCIUM 8.4 MG/DL (8.5-10.1); CHLORIDE 104 MMOL/L (99-107); CREATININE 1.45 MG/DL (0.40-0.90); GLUCOSE 91 MG/DL (70-104); SODIUM 141 MMOL/L (135-145); TOTAL CARBON DIOXIDE 31.2 MMOL/L (24-32); eGFR 34 ML/MIN
[2019-03-27] MEDS: albuterol 2.5 MG/3 ML nebule NEB PRN (07:04)
[2019-03-27] MEDS: ROPINIRole 1mg tablet PO SCH ×3 (07:23→20:03)
[2019-03-27] MEDS: atorvastatin 20mg tablet PO SCH (07:23)
[2019-03-27] MEDS: pantoprazole 40mg Tablet.DR PO SCH (07:23)
[2019-03-27] MEDS: furosemide 20 MG/2 ML vial IV SCH ×2 (07:23→19:45)
[2019-03-27] MEDS: amiodarone 200mg tablet PO SCH (07:23)
[2019-03-27] MEDS: clobetasol 0.05% cream 30gm TP SCH ×2 (08:42→19:46)
[2019-03-27 11:00] VITALS: BP 122/57
[2019-03-27] MEDS: levoFLOXACIN 500mg tablet PO SCH (15:58)
[2019-03-27] MEDS: ferrous sulfate 325mg tablet PO SCH (17:38)
[2019-03-27 18:00] VITALS: BP 128/64
[2019-03-27] MEDS: albuterol 2.5 MG/3 ML nebule NEB SCH ×2 (19:15→23:40)
[2019-03-27 19:19] LABS: OCCULT BLOOD STOOL NEGATIVE (Neg)
[2019-03-27] MEDS: methylPREDNISolone sod succ/PF 40mg inj. IV SCH (19:45)
[2019-03-27] MEDS ORDERED: methylPREDNISolone sod succ/PF 40mg inj. IV SCH (20:00)
[2019-03-27] MEDS ORDERED: warfarin 1mg tablet PO ONE (21:00)
[2019-03-27 22:00] VITALS: BP 132/68
[2019-03-28] VITALS: BP 105/49
--- NOTE | 2019-03-28 01:30 | NUR ---
I have received report from PCU nurse Oneyda SUMMERS and had the opportunity to ask questions and assume patient care.
--- NOTE | 2019-03-28 01:30 | NUR ---
Problems reprioritized. Patient report given, questions answered & plan of care reviewed with Lisa SUMMERS in Med/Surg. Patient is tranfered out of unit with all personal belongings.
--- NOTE | 2019-03-28 02:00 | NUR ---
Pt transferred to room 360B, Pericare, linen change, skin check, urostomy hooked to f/c bag as pt and aid stated that bag fills up fast and comes off. Pt assisted to the bathroom with fww, pt had med BM.
[2019-03-28] MEDS: albuterol 2.5 MG/3 ML nebule NEB SCH ×6 (03:30→23:14)
[2019-03-28 05:58] LABS: BASOPHILS % (AUTO) 0.3 % (0-1); EOSINOPHILS % (AUTO) 0.1 % (0-6); HEMOGLOBIN 8.2 g/dl (12.0-16.0); LYMPHOCYTES # (AUTO) 0.2 X10'3 (1.1-4.8); LYMPHOCYTES % (AUTO) 4.5 % (21-51); MEAN CORPUSCULAR HEMOGLOBIN 29.1 PG (27.0-31.0); MEAN CORPUSCULAR HGB CONC 32.9 g/dL (33.0-36.5); MEAN CORPUSCULAR VOLUME 88.5 FL (78-98); MEAN PLATELET VOLUME 8.9 FL (7.4-10.4); NEUTROPHILS # (AUTO) 3.4 X10'3 (1.8-7.7); NEUTROPHILS % (AUTO) 94.1 % (42-75); PLATELET COUNT 161 X10'3 (140-440); RED BLOOD COUNT 2.82 X10'6 (4.20-5.60); RED CELL DISTRIBUTION WIDTH 14.8 % (11.5-14.5); WHITE BLOOD COUNT 3.7 X10'3 (4.5-11.0)
--- NOTE | 2019-03-28 06:05 | NUR ---
Patient in room [facility] 360. I have received report from MELINA Gonzalez and had the opportunity to ask questions and assume patient care.
--- NOTE | 2019-03-28 06:17 | NUR ---
Problems reprioritized. Patient report given, questions answered & plan of care reviewed with Sharon SUMMERS. Addendum: 03/28/19 at 0618 by Lisa Marrufo RN Amended: Links added.
[2019-03-28 06:19] LABS: ALBUMIN 2.8 G/DL (3.4-5.0); ANION GAP 6 (8-16); BLOOD UREA NITROGEN 36 MG/DL (7-18); BUN/CREATININE RATIO 24.3 (6.6-38.0); CALCIUM 8.5 MG/DL (8.5-10.1); CHLORIDE 101 MMOL/L (99-107); CREATININE 1.48 MG/DL (0.40-0.90); GLUCOSE 154 MG/DL (70-104); POTASSIUM 4.2 MMOL/L (3.5-5.1); SODIUM 138 MMOL/L (135-145); TOTAL CARBON DIOXIDE 30.7 MMOL/L (24-32); eGFR 33 ML/MIN
[2019-03-28 06:30] VITALS: BP 112/58
[2019-03-28] MEDS: atorvastatin 20mg tablet PO SCH (08:30)
[2019-03-28] MEDS: amiodarone 200mg tablet PO SCH (08:30)
[2019-03-28] MEDS: ferrous sulfate 325mg tablet PO SCH ×3 (08:30→17:54)
[2019-03-28] MEDS: pantoprazole 40mg Tablet.DR PO SCH (08:30)
[2019-03-28] MEDS: methylPREDNISolone sod succ/PF 40mg inj. IV SCH ×2 (08:31→21:58)
[2019-03-28] MEDS: furosemide 20 MG/2 ML vial IV SCH ×3 (08:31→22:00)
[2019-03-28] MEDS: nystatin 15 GM powder TP SCH ×3 (08:31→22:00)
[2019-03-28] MEDS: ROPINIRole 1mg tablet PO SCH ×3 (08:32→22:00)
[2019-03-28] MEDS: clobetasol 0.05% cream 30gm TP SCH ×2 (08:32→21:59)
[2019-03-28] MEDS: levoFLOXACIN 500mg tablet PO SCH (10:58)
[2019-03-28 11:00] VITALS: BP 114/57
[2019-03-28 18:30] VITALS: BP 110/55
--- NOTE | 2019-03-28 18:30 | NUR ---
Patient in room [facility] 360. I have received report from Sharon SUMMERS and had the opportunity to ask questions and assume patient care.
--- NOTE | 2019-03-28 18:55 | NUR ---
Problems reprioritized. Patient report given, questions answered & plan of care reviewed with MELINA Louis.
[2019-03-28] MEDS ORDERED: warfarin 1mg tablet PO ONE (21:00)
[2019-03-28 22:00] VITALS: BP 98/41
[2019-03-29] VITALS: BP 105/49
[2019-03-29] MEDS: albuterol 2.5 MG/3 ML nebule NEB SCH ×3 (03:04→10:15)
[2019-03-29 05:30] LABS: ANION GAP 7 (8-16); BLOOD UREA NITROGEN 55 MG/DL (7-18); BUN/CREATININE RATIO 31.6 (6.6-38.0); CALCIUM 8.7 MG/DL (8.5-10.1); CHLORIDE 100 MMOL/L (99-107); CREATININE 1.74 MG/DL (0.40-0.90); GLUCOSE 146 MG/DL (70-104); POTASSIUM 4.6 MMOL/L (3.5-5.1); SODIUM 138 MMOL/L (135-145); eGFR 28 ML/MIN
[2019-03-29 05:34] LABS: BASOPHILS % (AUTO) 0 % (0-1); EOSINOPHILS % (AUTO) 0 % (0-6); HEMATOCRIT 23.9 % (35.0-45.0); HEMOGLOBIN 7.9 g/dl (12.0-16.0); LYMPHOCYTES # (AUTO) 0.2 X10'3 (1.1-4.8); LYMPHOCYTES % (AUTO) 3.4 % (21-51); MEAN CORPUSCULAR HEMOGLOBIN 28.8 PG (27.0-31.0); MEAN CORPUSCULAR HGB CONC 32.8 g/dL (33.0-36.5); MEAN CORPUSCULAR VOLUME 87.8 FL (78-98); MEAN PLATELET VOLUME 8.9 FL (7.4-10.4); MONOCYTES # (AUTO) 0.1 X10'3 (0-0.9); MONOCYTES % (AUTO) 1.7 % (2-12); NEUTROPHILS # (AUTO) 5.7 X10'3 (1.8-7.7); NEUTROPHILS % (AUTO) 94.9 % (42-75); PLATELET COUNT 164 X10'3 (140-440); RED BLOOD COUNT 2.72 X10'6 (4.20-5.60); RED CELL DISTRIBUTION WIDTH 15.4 % (11.5-14.5)
--- NOTE | 2019-03-29 06:20 | NUR ---
Patient in room [facility] 360. I have received report from MELINA Louis and had the opportunity to ask questions and assume patient care.
[2019-03-29 06:30] VITALS: BP 119/55
--- NOTE | 2019-03-29 06:39 | NUR ---
Problems reprioritized. Patient report given, questions answered & plan of care reviewed with Sharon RN.
[2019-03-29] MEDS: amiodarone 200mg tablet PO SCH (10:04)
[2019-03-29] MEDS: atorvastatin 20mg tablet PO SCH (10:04)
[2019-03-29] MEDS: ROPINIRole 1mg tablet PO SCH ×2 (10:04→12:56)
[2019-03-29] MEDS: ferrous sulfate 325mg tablet PO SCH ×2 (10:04→12:45)
[2019-03-29] MEDS: pantoprazole 40mg Tablet.DR PO SCH (10:04)
[2019-03-29] MEDS: clobetasol 0.05% cream 30gm TP SCH (10:05)
[2019-03-29] MEDS: nystatin 15 GM powder TP SCH ×2 (10:05→12:45)
[2019-03-29] MEDS ORDERED: ROPI1TAB4 PO (10:31)
[2019-03-29] MEDS ORDERED: NYSPWD TP (10:31)
[2019-03-29] MEDS ORDERED: FURO20TA4 PO (10:31)
[2019-03-29] MEDS ORDERED: LEVO250T58 PO (10:31)
[2019-03-29] MEDS ORDERED: FER325T PO (10:31)
[2019-03-29] MEDS ORDERED: PRED20TA PO (10:31)
--- NOTE | 2019-03-29 10:37 | NUR ---
Pt admitted for acute decompensated heart failure. Pt eating fairly well with PO intake 75-100% on Heart Healthy diet, mostly meeting nutrient needs. Last BM 03/27. Pt has edema on BLE +2 and bilateral foot edema +1. No current nutrition diagnosis at this time. Will continue to follow. Recommendations: 1. Continue Heart Healthy diet 2. Weight per rx 3. Bowel care as needed 4. Continue to monitor labs Addendum: 03/29/19 at 1037 by Wing Ish VILLALTA Amended: Links added. Addendum: 03/29/19 at [address] RD agree with international editorial producer note
[2019-03-29 11:00] VITALS: BP 101/50
[2019-03-29] MEDS ORDERED: levoFLOXACIN 250mg tablet PO SCH (11:00)
--- NOTE | 2019-03-29 15:20 | NUR ---
DC inst provided to pt. IV DC'd, tip intact. All belongings sent w/pt. WC to front lobby.
[2019-03-29] MEDS ORDERED: warfarin 1mg tablet PO ONE (21:00)
[2019-03-30] MEDS ORDERED: predniSONE 20 mg tablet PO SCH (08:00)
[2019-03-30] MEDS ORDERED: furosemide 20MG tablet PO SCH (08:00)
== END 2019-03-29 15:18 | disposition home or self-care (01) | DRG 291 ==
LOC: ER 21:44 → ED HOLD 23:41 → EDBEDREQSVC 03-25 00:12 → EDBEDREQ 03-25 00:12 → CMPBEDREQ 03-25 07:28 → PCU 3S 03-25 07:40 → SUR 3N 03-28 01:41
PROVIDERS: ADMIT Internal Medicine; ATTEND Family Medicine
DX: I11.0 Hypertensive heart disease with heart failure (principal); J96.21 Acute and chronic respiratory failure with hypoxia; J44.1 Chronic obstructive pulmonary disease with (acute) exacerbation; E11.9 Type 2 diabetes mellitus without complications; I50.813 Acute on chronic right heart failure; I27.81 Cor pulmonale (chronic); D50.9 Iron deficiency anemia, unspecified; M10.9 Gout, unspecified; E78.00 Pure hypercholesterolemia, unspecified; E78.5 Hyperlipidemia, unspecified; I27.29 Other secondary pulmonary hypertension; I48.0 Paroxysmal atrial fibrillation; K21.9 Gastro-esophageal reflux disease without esophagitis; Z79.01 Long term (current) use of anticoagulants; Z95.2 Presence of prosthetic heart valve; Z79.899 Other long term (current) drug therapy; Z85.51 Personal history of malignant neoplasm of bladder; Z87.891 Personal history of nicotine dependence; Z88.0 Allergy status to penicillin; Z90.49 Acquired absence of other specified parts of digestive tract
CPT/HCPCS: 36415; 71045; 80048; 80053; 82272; 83540; 83550; 83880; 84484; 85025; 85610; 87081; 93005; 94640; 94760; 96374; 97110; 97116; 97162; 97530; 99285; G0378; J1940; J2920

== ENCOUNTER 2020-04-02 19:38 | Inpatient (IN) | payer MEDICARE ==
[~2020-04-02] VITALS: Ht 157.5 cm; Wt 48.6 kg
[~2020-04-02 19:38] MED LIST changes: -ALB0.5UD IH; +ALBU8.5H8 IH; -AMIO200T54 PO; +AMIO200T62 PO; +CLOB15CR4 TOP; -COU1T PO; +COU4T PO; +FER325T PO; -FURO-150 PO; +FURO20TA4 PO; +LEVO250T58 PO; +NYSPWD TP; -OMEP20CA11 PO; +OMEP20CA15 PO; +PRED20TA PO; +ROPI1TAB6 PO; -ROPI2TAB5 PO; +ROPI2TAB7 PO
[2020-04-02] MEDS ORDERED: furosemide 40mg/4ml inj IV ONE (20:05)
[2020-04-02 20:53] LABS: BASOPHILS % (AUTO) 0.9 % (0-1); EOSINOPHILS # (AUTO) 0.1 X10'3 (0-0.9); EOSINOPHILS % (AUTO) 1.5 % (0-6); HEMOGLOBIN 11.5 g/dl (12.0-16.0); LYMPHOCYTES # (AUTO) 0.5 X10'3 (1.1-4.8); LYMPHOCYTES % (AUTO) 9.8 % (21-51); MEAN CORPUSCULAR HEMOGLOBIN 33.5 PG (27.0-31.0); MEAN CORPUSCULAR HGB CONC 32.7 g/dL (33.0-36.5); MEAN CORPUSCULAR VOLUME 102.5 FL (78-98); MEAN PLATELET VOLUME 8.7 FL (7.4-10.4); MONOCYTES # (AUTO) 0.3 X10'3 (0-0.9); MONOCYTES % (AUTO) 5.5 % (2-12); NEUTROPHILS # (AUTO) 4.2 X10'3 (1.8-7.7); NEUTROPHILS % (AUTO) 82.3 % (42-75); PLATELET COUNT 125 X10'3 (140-440); RED BLOOD COUNT 3.42 X10'6 (4.20-5.60); RED CELL DISTRIBUTION WIDTH 15.2 % (11.5-14.5)
[2020-04-02 20:56] LABS: D-DIMER 0.45 MG/L FEU (0-0.50); PARTIAL THROMBOPLASTIN TIME 36 SECONDS (22-32)
[2020-04-02] MEDS ORDERED: metoprolol tartrate 1mg/ml inj IV SCH (21:35)
[2020-04-02] MEDS ORDERED: AMIO200T61 PO (21:48)
[2020-04-02] MEDS ORDERED: WARF-65 PO ×2 (22:13→22:14)
[2020-04-02] MEDS ORDERED: FURO-150 PO (22:16)
[2020-04-02 22:31] LABS: ALANINE AMINOTRANSFERASE 26 U/L (12-78); ALBUMIN 3.5 G/DL (3.4-5.0); ALBUMIN/GLOBULIN RATIO 1.2 (1.1-1.5); ALKALINE PHOSPHATASE 115 IU/L (46-116); ANION GAP 7 (8-16); ASPARTATE AMINO TRANSFERASE 22 U/L (10-37); BILIRUBIN,TOTAL 0.5 MG/DL (0.1-1.0); BLOOD UREA NITROGEN 37 MG/DL (7-18); BUN/CREATININE RATIO 18.2 (6.6-38.0); CALCIUM 8.9 MG/DL (8.5-10.1); CHLORIDE 109 MMOL/L (99-107); CREATININE 2.03 MG/DL (0.40-0.90); GLUCOSE 113 MG/DL (70-104); POTASSIUM 4.1 MMOL/L (3.5-5.1); SODIUM 146 MMOL/L (135-145); TOTAL CARBON DIOXIDE 29.6 MMOL/L (24-32); TOTAL PROTEIN 6.5 G/DL (6.4-8.2); eGFR 23 ML/MIN
[2020-04-02 22:44] LABS: C-REACTIVE PROTEIN 0.23 MG/DL (0.0-0.5); FERRITIN 86 NG/ML (8-252); LACTATE DEHYDROGENASE 278 U/L (81-234)
[2020-04-02] MEDS ORDERED: potassium CL 10mEq/100ml bag 100 ML IV PRN ×2 (23:05)
[2020-04-02] MEDS ORDERED: acetaminophen 325mg tablet PO PRN (23:05)
[2020-04-02] MEDS ORDERED: potassium Cl 20 mEq SR tablet PO PRN ×2 (23:05)
[2020-04-02] MEDS ORDERED: magnesium hydroxide 30ml (MOM) UD suspension PO PRN (23:05)
[2020-04-02] MEDS ORDERED: ondansetron/PF 4mg/2ml inj IV PRN (23:05)
[2020-04-02] MEDS ORDERED: mag hydrox/Alum hydrox/simeth 30ml oral suspension PO PRN (23:05)
[2020-04-02] MEDS ORDERED: albuterol 2.5 MG/3 ML nebule NEB PRN (23:10)
--- NOTE | 2020-04-03 06:31 | NUR ---
emptied 700 ml of urine .
--- NOTE | 2020-04-03 07:38 | NUR ---
empitied 300 ml of urine.
[2020-04-03 07:54] LABS: BASOPHILS % (AUTO) 0.9 % (0-1); EOSINOPHILS # (AUTO) 0.1 X10'3 (0-0.9); EOSINOPHILS % (AUTO) 2.5 % (0-6); HEMATOCRIT 33.5 % (35.0-45.0); LYMPHOCYTES # (AUTO) 0.5 X10'3 (1.1-4.8); LYMPHOCYTES % (AUTO) 10.9 % (21-51); MEAN CORPUSCULAR HEMOGLOBIN 33.3 PG (27.0-31.0); MEAN CORPUSCULAR HGB CONC 32.9 g/dL (33.0-36.5); MEAN CORPUSCULAR VOLUME 101.2 FL (78-98); MEAN PLATELET VOLUME 8.4 FL (7.4-10.4); MONOCYTES # (AUTO) 0.4 X10'3 (0-0.9); MONOCYTES % (AUTO) 7.8 % (2-12); NEUTROPHILS # (AUTO) 3.8 X10'3 (1.8-7.7); NEUTROPHILS % (AUTO) 77.9 % (42-75); PLATELET COUNT 118 X10'3 (140-440); RED BLOOD COUNT 3.31 X10'6 (4.20-5.60); RED CELL DISTRIBUTION WIDTH 15.4 % (11.5-14.5); WHITE BLOOD COUNT 4.9 X10'3 (4.5-11.0)
[2020-04-03] MEDS: K and/or MAG REPLACEMENT MC SCH ×2 (08:00→20:00)
[2020-04-03 08:08] LABS: ALANINE AMINOTRANSFERASE 23 U/L (12-78); ALBUMIN 3.4 G/DL (3.4-5.0); ALBUMIN/GLOBULIN RATIO 1.1 (1.1-1.5); ALKALINE PHOSPHATASE 113 IU/L (46-116); ANION GAP 7 (8-16); ASPARTATE AMINO TRANSFERASE 19 U/L (10-37); BILIRUBIN,TOTAL 0.7 MG/DL (0.1-1.0); BLOOD UREA NITROGEN 37 MG/DL (7-18); CALCIUM 8.9 MG/DL (8.5-10.1); CHLORIDE 110 MMOL/L (99-107); CREATININE 1.85 MG/DL (0.40-0.90); GLUCOSE 95 MG/DL (70-104); POTASSIUM 3.7 MMOL/L (3.5-5.1); SODIUM 149 MMOL/L (135-145); TOTAL CARBON DIOXIDE 31.8 MMOL/L (24-32); TOTAL PROTEIN 6.4 G/DL (6.4-8.2); eGFR 26 ML/MIN
--- NOTE | 2020-04-03 08:12 | NUR ---
Patient arrived to PCU 3013B. Transferred to hospital bed with standby assist. Patient oriented to room and to call light. Vital signs: T 96.6, 02 97% 2L NC, RR: 16, BP 142/101, HR 120, Pain 0/10. All immediate needs met at this time.
[2020-04-03] MEDS: pantoprazole 40mg Tablet.DR PO SCH (08:37)
[2020-04-03] MEDS: atorvastatin 20mg tablet PO SCH (08:37)
[2020-04-03] MEDS: amiodarone 100mg tablet PO SCH (08:37)
[2020-04-03] MEDS: furosemide 10 MG/1 ML 10ml inj IV SCH ×2 (08:37→21:48)
[2020-04-03] MEDS: ROPINIRole 1mg tablet PO SCH ×3 (08:37→21:41)
[2020-04-03 11:00] VITALS: BP 101/62
[2020-04-03] MEDS: clobetasol 0.05% cream 30gm TP SCH ×2 (12:10→21:40)
[2020-04-03 15:00] VITALS: BP 98/65
[2020-04-03] MEDS ORDERED: ondansetron 4mg rapidly disintigrating tab PO PRN (15:25)
--- NOTE | 2020-04-03 15:29 | NUR ---
Age screen: Pt admit w/ increased SOB DX CHF and bilateral pleural effusions per EMR. PO 100% first heart healthy meal good given age w/ normal strength noted. To f/u 04/07 for initial assessment. Addendum: 04/03/20 at [address] Amended: Links added.
--- NOTE | 2020-04-03 18:10 | NUR ---
Problems reprioritized. Patient report given, questions answered & plan of care reviewed with Jennifer SUMMERS. Patient stable at transfer of care.
--- NOTE | 2020-04-03 18:16 | NUR ---
[place]rientee documentation: I have reviewed and agree with all interventions, assessments performed and documented by MELINA Gonzalez. [place] Medication Administration: For this medication-pass time frame, all medication were reviewed, dispensed, administered and documented per hospital policy by MELINA Gonzalez.
[2020-04-03 18:43] VITALS: BP 107/63
[2020-04-03 22:19] VITALS: BP 92/59
[2020-04-04 02:32] VITALS: BP 148/77
[2020-04-04 06:06] LABS: BASOPHILS % (AUTO) 0.6 % (0-1); EOSINOPHILS # (AUTO) 0.2 X10'3 (0-0.9); EOSINOPHILS % (AUTO) 4.5 % (0-6); HEMATOCRIT 32.3 % (35.0-45.0); HEMOGLOBIN 10.6 g/dl (12.0-16.0); LYMPHOCYTES # (AUTO) 0.6 X10'3 (1.1-4.8); LYMPHOCYTES % (AUTO) 12.7 % (21-51); MEAN CORPUSCULAR HEMOGLOBIN 33.3 PG (27.0-31.0); MEAN CORPUSCULAR HGB CONC 32.9 g/dL (33.0-36.5); MEAN CORPUSCULAR VOLUME 101.1 FL (78-98); MEAN PLATELET VOLUME 8.5 FL (7.4-10.4); MONOCYTES # (AUTO) 0.4 X10'3 (0-0.9); MONOCYTES % (AUTO) 8.4 % (2-12); NEUTROPHILS # (AUTO) 3.5 X10'3 (1.8-7.7); NEUTROPHILS % (AUTO) 73.8 % (42-75); PLATELET COUNT 119 X10'3 (140-440); RED BLOOD COUNT 3.19 X10'6 (4.20-5.60); RED CELL DISTRIBUTION WIDTH 14.5 % (11.5-14.5); WHITE BLOOD COUNT 4.7 X10'3 (4.5-11.0)
[2020-04-04 06:11] LABS: ALANINE AMINOTRANSFERASE 21 U/L (12-78); ALBUMIN 3.1 G/DL (3.4-5.0); ALBUMIN/GLOBULIN RATIO 1.1 (1.1-1.5); ALKALINE PHOSPHATASE 101 IU/L (46-116); ANION GAP 3 (8-16); ASPARTATE AMINO TRANSFERASE 18 U/L (10-37); BILIRUBIN,TOTAL 0.7 MG/DL (0.1-1.0); BLOOD UREA NITROGEN 38 MG/DL (7-18); BUN/CREATININE RATIO 20.2 (6.6-38.0); CALCIUM 8.8 MG/DL (8.5-10.1); CHLORIDE 106 MMOL/L (99-107); CREATININE 1.88 MG/DL (0.40-0.90); GLUCOSE 92 MG/DL (70-104); POTASSIUM 3.7 MMOL/L (3.5-5.1); SODIUM 145 MMOL/L (135-145); TOTAL CARBON DIOXIDE 36.3 MMOL/L (24-32); TOTAL PROTEIN 5.9 G/DL (6.4-8.2); eGFR 25 ML/MIN
--- NOTE | 2020-04-04 06:16 | NUR ---
Patient in room PCU 3013. I have received report from Jennifer SUMMERS and had the opportunity to ask questions and assume patient care. Patient awake in bed. Offers no complaints. All immediate needs met at this time.
--- NOTE | 2020-04-04 06:18 | NUR ---
Patient in room PCU 3013. I have received report from Jennifer SUMMERS and had the opportunity to ask questions and assume patient care. Patient awake and offers no complaint.
[2020-04-04 07:00] VITALS: BP 122/76
[2020-04-04] MEDS: amiodarone 100mg tablet PO SCH (07:20)
[2020-04-04] MEDS: clobetasol 0.05% cream 30gm TP SCH (07:20)
[2020-04-04] MEDS: pantoprazole 40mg Tablet.DR PO SCH (07:21)
[2020-04-04] MEDS: ROPINIRole 1mg tablet PO SCH ×2 (07:22→13:27)
[2020-04-04] MEDS: atorvastatin 20mg tablet PO SCH (07:22)
[2020-04-04] MEDS: furosemide 10 MG/1 ML 10ml inj IV SCH (07:23)
[2020-04-04] MEDS: K and/or MAG REPLACEMENT MC SCH (07:24)
--- NOTE | 2020-04-04 10:00 | NUR ---
Wound care presented at bedside to see pt in regards to redness/scabbing of LLE. Pt gave verbal consent to be seen. Pt LLE appears to have chronic dermatological changes and hemosiderin staining. There is evidence of venous ulcers healing but not open at this time. Will recommend Eucerin cream for the dryness.
[2020-04-04 11:00] VITALS: BP 93/55
--- NOTE | 2020-04-04 15:38 | NUR ---
Patient stable for discharge per MD orders. All discharge instruction given to patient and all questions answered. Patient to follow up with PCP in 1 week. Patient states she has an appointment scheduled for 04/05/20. PIV x 2 discontinued - cannula intact. No new prescriptions ordered for patient at this time. Telemetry monitoring discontinued. Patient dressed and transferred to wheelchair. Escorted to [facility] by primary RN. Patient did not have any belongings with her at time of admission other than clothing and dentures (lower). Patient transported to home by daughter.
== END 2020-04-04 15:38 | disposition home health service (06) | DRG 291 ==
LOC: ER 19:38 → ED HOLD 23:05 → PCU 3S 04-03 08:14
PROVIDERS: ADMIT Internal Medicine; ATTEND Internal Medicine
DX: I13.0 Hypertensive heart and chronic kidney disease with heart failure and stage 1 through stage 4 chronic kidney disease, or unspecified chronic kidney disease (principal); I50.43 Acute on chronic combined systolic (congestive) and diastolic (congestive) heart failure; N17.9 Acute kidney failure, unspecified; E78.00 Pure hypercholesterolemia, unspecified; I35.0 Nonrheumatic aortic (valve) stenosis; E78.5 Hyperlipidemia, unspecified; K21.9 Gastro-esophageal reflux disease without esophagitis; I48.0 Paroxysmal atrial fibrillation; Z96.652 Presence of left artificial knee joint; G25.81 Restless legs syndrome; E11.22 Type 2 diabetes mellitus with diabetic chronic kidney disease; N18.9 Chronic kidney disease, unspecified; Z20.828 Contact with and (suspected) exposure to other viral communicable diseases; M10.9 Gout, unspecified; I87.2 Venous insufficiency (chronic) (peripheral); J44.9 Chronic obstructive pulmonary disease, unspecified; Z85.51 Personal history of malignant neoplasm of bladder; Z95.2 Presence of prosthetic heart valve; Z99.81 Dependence on supplemental oxygen; Z88.0 Allergy status to penicillin; Z87.01 Personal history of pneumonia (recurrent); Z79.899 Other long term (current) drug therapy
CPT/HCPCS: 36415; 71045; 76937; 80053; 82728; 83605; 83615; 83880; 84145; 84443; 84550; 85025; 85379; 85384; 85610; 85730; 86140; 87040; 87077; 87081; 87186; 87635; 93005; 93306; 93308; 94760; 96374; 97110; 97116; 97161; 97530; 99285; C9803; G0378; J1940